=== PATIENT | male | born 1940 | race Caucasian/White ===

== ENCOUNTER → 2016-07-05 | Outpatient (CLI) | payer MEDICARE ==
[~2016-07-05] MED LIST: ACET65TA; ALLO100T PO; ASPI81TA83; ATEN50TA2; ATEN50TA2 PO; CARA1TAB2 PO; CARV6.25 PO; CHLO25TA38 PO; CIPR500T89 PO; CLOBETASOL TOP; CLOP75TA2 PO; COLCHICINE PO; CORE25TA PO; COUM7.5T PO; FLEXERIL; FURO40TA2 PO; FURO8SOL PO; GABA-279 PO; GABA300C3 PO; K-TA10TA; LASI40TA; LEVA500T PO; LISI5TAB PO; MAGN500T14 PO; METF500T PO; MI-A80CH PO; MULTIVIT; NITR0.4S SL; NITR4TASL; NITR4TASL SL; NITROGLYCERINE TOP; OMEP20TA7 PO; OMEP40CA2 PO; ONDA4TAB6; PERC5TAB6 PO; PERCOCET PO; PLAV75TA2 PO; PRAV10TA PO; PROBENECID PO; SIMV20TA2; TAMS0.4C PO; TIZA2CAP3 PO; TRIA0.1C60 EX; TYLE325T5 PO; TYLE650T25 PO; ULTR50TA PO; VALS1TAB49 PO; lasix OR
--- NOTE | 2016-07-05 11:14 | REP ---
KUB, THREE VIEWS: HISTORY: Abdominal pain. A small amount of air is present in small and large intestine. There are no air fluid levels or dilated loops of intestine. There is no pneumoperitoneum. Degenerative change is present in the lumbar spine. A laminectomy defect is present at the L5-S1 level. IMPRESSION: Nonspecific bowel gas pattern. Signed by Ramses Gonsalves MD 07/05/2016 11:59 A
[2016-07-05 13:37] LABS: BASO % 0.3 % (0.0-1.0); EOS # 0.1 K/mm3 (0.0-0.50); EOS % 1.1 % (0.0-3.0); LARGE UNSTAINED CELL # 0.1 K/mm3 (0.0-0.4); LARGE UNSTAINED CELL % 1.1 % (0.0-4.0); LYMPH # 1.3 K/mm3 (1.5-4.5); LYMPH % 17.5 % (24.0-44.0); MEAN CORPUSCULAR HEMOGLOBIN 29.4 pg (27.0-33.0); MEAN CORPUSCULAR HGB CONC 34.7 g/dl (32.0-36.5); MEAN CORPUSCULAR VOLUME 84.8 fl (80.0-96.0); MONO # 0.5 K/mm3 (0.0-0.8); MONO % 7.1 % (0.0-5.0); NEUTROPHILS # 5.3 K/mm3 (1.8-7.7); PLATELET COUNT, AUTOMATED 153 k/mm3 (150-450); RED CELL DISTRIBUTION WIDTH 13.7 % (11.5-14.5); WHITE BLOOD COUNT 7.2 K/mm3 (4.0-10.0)
[2016-07-05 13:51] LABS: ALBUMIN 3.9 GM/DL (3.2-5.2); ALBUMIN/GLOBULIN RATIO 1.22 (1.00-1.93); ALKALINE PHOSPHATASE 60 U/L (45-117); ALT/SGPT 81 U/L (12-78); AMYLASE 57 U/L (25-115); ANION GAP 10 MEQ/L (8-16); AST/SGOT 50 U/L (15-37); BILIRUBIN,TOTAL 0.6 MG/DL (0.2-1.0); BLOOD UREA NITROGEN 13 MG/DL (7-18); CALCIUM LEVEL 9.5 MG/DL (8.8-10.2); CARBON DIOXIDE LEVEL 29 MEQ/L (21-32); CHLORIDE LEVEL 93 MEQ/L (98-107); CREATININE FOR GFR 0.82 MG/DL (0.70-1.30); GLOMERULAR FILTRATION RATE > 60.0 (>42); GLUCOSE, FASTING 136 MG/DL (83-110); POTASSIUM SERUM 4.9 MEQ/L (3.5-5.1); SODIUM LEVEL 132 MEQ/L (136-145); TOTAL PROTEIN 7.1 GM/DL (6.4-8.2)
== END ==
LOC: M ADAMS 10:16
PROVIDERS: ATTEND Physician Assistant Medical
DX: R10.9 Unspecified abdominal pain (principal)

== ENCOUNTER 2016-07-06 08:34 | Emergency (ER) | payer MEDICARE ==
[~2016-07-06] VITALS: Ht 180.3 cm; Wt 104.3 kg
[~2016-07-06 08:34] MED LIST changes: -CARV6.25 PO; -CHLO25TA38 PO; -FURO40TA2 PO; -FURO8SOL PO; -GABA-279 PO; -MAGN500T14 PO; -MI-A80CH PO; -NITR4TASL; -OMEP40CA2 PO; -ONDA4TAB6; -PRAV10TA PO; -VALS1TAB49 PO
[2016-07-06] MEDS ORDERED: GABA-279 PO (09:06)
[2016-07-06] MEDS ORDERED: FURO8SOL PO (09:06)
[2016-07-06] MEDS ORDERED: MAGN500T14 PO (09:06)
[2016-07-06] MEDS ORDERED: PRAV10TA PO (09:06)
[2016-07-06] MEDS ORDERED: OMEP40CA2 PO (09:06)
[2016-07-06] MEDS ORDERED: FURO40TA2 PO (09:06)
[2016-07-06] MEDS ORDERED: METF500T PO (09:06)
[2016-07-06] MEDS ORDERED: MI-A80CH PO (09:06)
[2016-07-06] MEDS ORDERED: VALS1TAB49 PO (09:06)
[2016-07-06] MEDS ORDERED: CARV6.25 PO (09:06)
[2016-07-06] MEDS ORDERED: CLOP75TA2 PO (09:06)
[2016-07-06] MEDS ORDERED: ALLO100T PO (09:06)
[2016-07-06] MEDS ORDERED: ONDA4TAB6 (09:06)
[2016-07-06] MEDS ORDERED: NITR4TASL (09:06)
[2016-07-06 09:50] LABS: BASO % 0.2 % (0.0-1.0); EOS % 0.6 % (0.0-3.0); LARGE UNSTAINED CELL # 0.1 K/mm3 (0.0-0.4); LYMPH # 1.2 K/mm3 (1.5-4.5); LYMPH % 19.6 % (24.0-44.0); MEAN CORPUSCULAR HEMOGLOBIN 29.1 pg (27.0-33.0); MEAN CORPUSCULAR HGB CONC 35.1 g/dl (32.0-36.5); MEAN CORPUSCULAR VOLUME 82.9 fl (80.0-96.0); MONO # 0.4 K/mm3 (0.0-0.8); MONO % 7.2 % (0.0-5.0); NEUTROPHILS # 4.2 K/mm3 (1.8-7.7); NEUTROPHILS % 70.4 % (36.0-66.0); PLATELET COUNT, AUTOMATED 161 k/mm3 (150-450); RED CELL DISTRIBUTION WIDTH 13.3 % (11.5-14.5)
[2016-07-06 10:19] LABS: ALBUMIN 3.7 GM/DL (3.2-5.2); ALBUMIN/GLOBULIN RATIO 0.93 (1.00-1.93); ALKALINE PHOSPHATASE 63 U/L (45-117); ALT/SGPT 96 U/L (12-78); ANION GAP 9 MEQ/L (8-16); AST/SGOT 66 U/L (15-37); BILIRUBIN,DIRECT 0.1 MG/DL (0.0-0.2); BILIRUBIN,TOTAL 0.6 MG/DL (0.2-1.0); BLOOD UREA NITROGEN 12 MG/DL (7-18); CALCIUM LEVEL 9.4 MG/DL (8.8-10.2); CARBON DIOXIDE LEVEL 26 MEQ/L (21-32); CHLORIDE LEVEL 96 MEQ/L (98-107); CREATININE FOR GFR 0.82 MG/DL (0.70-1.30); GLOMERULAR FILTRATION RATE > 60.0 (>42); GLUCOSE, FASTING 139 MG/DL (83-110); POTASSIUM SERUM 4.3 MEQ/L (3.5-5.1); SODIUM LEVEL 131 MEQ/L (136-145); TOTAL PROTEIN 7.7 GM/DL (6.4-8.2)
[2016-07-06] MEDS ORDERED: ISOVUE-370 76% 100ML VIAL (Q9967) As Ordered ONE (10:36)
[2016-07-06] MEDS ORDERED: METOCLOPRAMIDE INJ 10MG/2ML VIAL (J2765) IV ONE ×2 (10:45→11:15)
--- NOTE | 2016-07-06 12:30 | REP ---
REASON FOR EXAM: Abdominal pain. COMPARISON: 07/24/2011 from [facility] which showed no abnormality. Contrast utilized 100 mL of Isovue 370. The lung bases are clear and unchanged. The liver, gallbladder, spleen, pancreas, adrenal glands, and kidneys are again seen to be within normal limits and essentially unchanged. The abdominal aorta and para-aortic regions are essentially unchanged and again seen to be within normal limits. There is respiratory motion artifact seen throughout the abdominal images decreasing the sensitivity of the exam. The bowel loops and their mesenteries are essentially unchanged aside from the detailed limiting artifact. There is no evidence of intestinal obstruction. There is no evidence of free intra-abdominal fluid or air. There is no evidence of an intra-abdominal mass or adenopathy. CT PELVIS: There is no free pelvic fluid or air. There is no pelvic mass or adenopathy. The pelvic bowel loops and their mesenteries are within normal limits. 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 Bone window technique throughout the exam shows chronic osseous changes, status quo. IMPRESSION: No significant change compared to the prior exam with limitations as described above. There is no evidence of acute intra-abdominal or intrapelvic disease. Signed by Marcelino Hall DO 07/06/2016 01:09 P
[2016-07-06] MEDS ORDERED: chlorproMAZINE INJ 50MG/2ML AMP (J3230) IM STA (13:36)
[2016-07-06 14:53] VITALS: BP 115/74
[2016-07-06] MEDS ORDERED: CHLO25TA38 PO (14:54)
--- NOTE | 2016-07-07 19:45 | ECGEPIP ---
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
== END 2016-07-06 15:12 | disposition home or self-care (01) ==
LOC: M ED 09:50
DX: R06.6 Hiccough (principal); E11.9 Type 2 diabetes mellitus without complications; I10 Essential (primary) hypertension; I50.9 Heart failure, unspecified; K43.9 Ventral hernia without obstruction or gangrene; Z85.819 Personal history of malignant neoplasm of unspecified site of lip, oral cavity, and pharynx; Z95.5 Presence of coronary angioplasty implant and graft
CPT/HCPCS: 36415; 74177; 80048; 80076; 83605; 83690; 85025; 93005; 93041; 96372; 96374; 96376; 99284; J2765; J3230; Q9967

== ENCOUNTER → 2016-10-10 | Outpatient (CLI) | payer MEDICARE ==
[~2016-10-10] MED LIST changes: +CARV6.25 PO; +CHLO25TA38 PO; +DOXY-278 PO; +E-Z-PAQUE 96% w/w SUSP 176GM BTL As Ordered ONE; +FURO40TA2 PO; +FURO8SOL PO; +GABA-279 PO; +GABA-282 PO; -GABA300C3 PO; +MAGN500T14 PO; +MI-A80CH PO; +NITR4TASL; +NYST50SS SS; +OMEP40CA2 PO; +ONDA4TAB6; +PRAV10TA PO; +REGL5TAB2 PO; +SUCR1TA PO; +VALS1TAB49 PO; +VARIBAR NECTAR 40% w/v 240ML SUSP BTL As Ordered ONE; +VARIBAR PUDDING 40% w/v 230ML TUBE As Ordered ONE
--- NOTE | 2016-10-10 12:32 | REP ---
COOKIE SWALLOW: The procedure was performed under the direct supervision of Dr. Reyes. The procedure was performed with Neida Perez from speech pathology present. 5 mL aliquots of nectar pudding solid and thin consistency barium was administered. There is no evidence of penetration or aspiration. A detailed report of this examination will be provided by speech pathology. Reviewed by FLORENTINO Agustin 10/10/2016 03:16 PEdited and Signed by Guillermo Reyes MD 10/10/2016 04:32 P
== END ==
LOC: M ST 09:36
PROVIDERS: ATTEND Physician Assistant Medical
DX: R13.10 Dysphagia, unspecified (principal)
CPT/HCPCS: 74230; 92611; G8996; G8997; G8998

== ENCOUNTER 2016-10-18 07:34 | Outpatient (RCR) | payer MEDICARE ==
[~2016-10-18 07:34] MED LIST changes: +CIPR-249 PO; -CIPR500T89 PO; -E-Z-PAQUE 96% w/w SUSP 176GM BTL As Ordered ONE; +LEVA1TAB2 PO; -LEVA500T PO; +METF500T13 PO; +PERC5TAB12 PO; -PERC5TAB6 PO; -PRAV10TA PO; +PRAV10TA4 PO; -VARIBAR NECTAR 40% w/v 240ML SUSP BTL As Ordered ONE; -VARIBAR PUDDING 40% w/v 230ML TUBE As Ordered ONE
== END 2016-10-25 | disposition home or self-care (01) ==
LOC: M ST 07:34
PROVIDERS: ATTEND Physician Assistant Medical
DX: Z51.89 Encounter for other specified aftercare (principal); R49.8 Other voice and resonance disorders; R13.10 Dysphagia, unspecified
CPT/HCPCS: 92523; 92524; 92526; G8996; G8997; G8998

== ENCOUNTER → 2017-01-29 | Outpatient (CLI) | payer MEDICARE | LOC: M SMT 10:36 | PROVIDERS: ATTEND Urology | DX: Z12.5 Encounter for screening for malignant neoplasm of prostate (principal) | CPT/HCPCS: 36415; 51798; G0103; G0463 ==

== ENCOUNTER → 2017-07-04 | Outpatient (REF) | payer MEDICARE ==
[2017-07-04 16:55] LABS: TOTAL PROTEIN 7.5 GM/DL (6.4-8.2)
[2017-07-04 17:11] LABS: PTH INTACT 63.4 PG/ML (18.5-88.0)
[2017-07-07 11:56] LABS: ALBUMIN 4.48 GM/DL (3.29-5.55); ALBUMIN % 59.7 % (55.8-66.1); ALPHA-1-GLOBULIN % 4.2 % (2.9-4.9); ALPHA-1-GLOBULINS 0.32 GM/DL (0.17-0.41); ALPHA-2-GLOBULINS 1.02 GM/DL (0.42-0.99); ALPHA-2-GLOBULINS % 13.6 % (7.1-11.8); BETA-1-GLOBULINS 0.46 GM/DL (0.28-0.60); BETA-1-GLOBULINS % 6.1 % (4.7-7.2); BETA-2-GLOBULINS 0.39 GM/DL (0.19-0.55); BETA-2-GLOBULINS % 5.2 % (3.2-6.5); GAMMA GLOBULIN % 11.2 % (11.1-18.8); GAMMA GLOBULINS 0.84 GM/DL (0.65-1.58)
== END ==
LOC: M LAB REF 16:28
DX: E83.52 Hypercalcemia (principal)
CPT/HCPCS: 84165

== ENCOUNTER → 2019-05-20 | Outpatient (REF) | payer MEDICARE ==
[~2019-05-20] MED LIST changes: -DOXY-278 PO; +DOXY-350 PO; +GABA-1171 PO; -GABA-279 PO; -GABA-282 PO; +GABA-843 PO; -OMEP40CA2 PO; +OMEP40CA97 PO; +TIZA2CAP PO; -TIZA2CAP3 PO; -VALS1TAB49 PO; +VALS40TA9 PO
== END ==
LOC: M LAB REF 10:13
PROVIDERS: ATTEND Dermatology
DX: D48.9 Neoplasm of uncertain behavior, unspecified (principal)

== ENCOUNTER → 2019-06-03 | Outpatient (REF) | payer MEDICARE | LOC: M LAB REF 19:45 | PROVIDERS: ATTEND Dermatology | DX: L57.0 Actinic keratosis (principal) ==

== ENCOUNTER → 2020-01-31 | Outpatient (REF) | payer MEDICARE ==
[~2020-01-31] MED LIST changes: -COUM7.5T PO; +COUM7.5T6 PO
[2020-01-31 17:45] LABS: APPEARANCE, URINE CLEAR (CLEAR); BACTERIA, URINE AUTO NEGATIVE (NEGATIVE); BILIRUBIN, URINE AUTO NEGATIVE (NEGATIVE); BLOOD, URINE BLOOD NEGATIVE (NEGATIVE); COLOR, URINE YELLOW (YELLOW); GLUCOSE, URINE (UA) AUTO NEGATIVE (NEGATIVE); KETONE, URINE AUTO NEGATIVE (NEGATIVE); LEUKOCYTE ESTERASE, URINE AUTO NEGATIVE (NEGATIVE); NITRITE, URINE AUTO NEGATIVE (NEGATIVE); PROTEIN, URINE AUTO NEGATIVE (NEGATIVE); RBC, URINE AUTO 0 /HPF (0-3); SPECIFIC GRAVITY URINE AUTO 1.015 (1.002-1.035); SQUAMOUS EPITHELIAL CELL UR AU 0 /HPF (0-6); UROBILINOGEN, URINE AUTO 0.2 mg/dL (0.0-2.0); WBC, URINE AUTO 1 /HPF (0-3)
== END ==
LOC: M SMT 16:51
PROVIDERS: ATTEND Nurse Practitioner Women's Health
DX: N50.819 Testicular pain, unspecified (principal)
CPT/HCPCS: 51798; 81001; 87086; G0463

== ENCOUNTER → 2020-06-26 | Outpatient (CLI) | payer MEDICARE ==
[~2020-06-26] MED LIST changes: +GABA-282 PO; -GABA-843 PO
--- NOTE | 2020-06-26 11:11 | REP ---
INDICATION: SOB COMPARISON: 08/31/2015 TECHNIQUE: PA and lateral. FINDINGS: The mediastinum and cardiac silhouette are normal. Incidental cardiac stent noted.. The lung taylor are clear and without acute consolidation, effusion, or pneumothorax. The skeletal structures are intact and normal. IMPRESSION: No acute cardiopulmonary process. <Electronically signed by Tyron Perez > 06/26/20 1104
== END ==
LOC: M RAD 10:29
PROVIDERS: ATTEND Internal Medicine
DX: R06.02 Shortness of breath (principal); R10.10 Upper abdominal pain, unspecified; E83.52 Hypercalcemia; Z95.5 Presence of coronary angioplasty implant and graft

== ENCOUNTER → 2020-07-07 | Outpatient (REF) | payer MEDICARE | LOC: M LAB REF 19:21 | PROVIDERS: ATTEND Dermatology | DX: L82.1 Other seborrheic keratosis (principal); L81.4 Other melanin hyperpigmentation | CPT/HCPCS: 11102; 17110; 88305; G0463 ==

== ENCOUNTER → 2020-07-10 | Outpatient (CLI) | payer MEDICARE ==
[~2020-07-10] MED LIST changes: +PROHANCE 279.3MG/ML 15ML VIAL As Ordered ONE; +PROHANCE 279.3MG/ML 5ML VIAL As Ordered ONE
--- NOTE | 2020-07-11 09:46 | REPVR ---
PROCEDURE INFORMATION: Exam: MR Head Without and With Contrast; Internal Auditory Canals Exam date and time: 07/10/2020 5:47 PM Age: 80 years old Clinical indication: Other: Sensorineural hearing loss, bilateral TECHNIQUE: Imaging protocol: MR of the head without and with intravenous contrast. Exam focused on the internal auditory canals. 3D rendering (Not supervised by radiologist): MIP and/or 3D reconstructed images were created by the technologist. Contrast material: PROHANCE; Contrast volume: 19 ml; Contrast route: INTRAVENOUS (IV); COMPARISON: No relevant prior studies available. FINDINGS: Brain: There are scattered nonspecific foci of high signal abnormality in the moreno radiata and centrum semiovale. These are best seen on the flair images. These foci may represent areas of gliosis, demyelination, and/or chronic ischemic change. There are chronic brainstem ischemic changes. Ventricles: No ventriculomegaly. Mastoid air cells: Unremarkable. No effusions. Internal auditory canals: High-resolution imaging through the internal auditory canals (IACs) demonstrates normal appearance of the seventh and eighth cranial nerve complexes. The cerebellopontine angle cisterns are unremarkable. Bones/joints: Unremarkable. IMPRESSION: 1. There are scattered nonspecific foci of high signal abnormality in the moreno radiata and centrum semiovale. These are best seen on the flair images. These foci may represent areas of gliosis, demyelination, and/or chronic ischemic change. No acute infarct is identified. 2. High-resolution imaging through the internal auditory canals (IACs) demonstrates normal appearance of the seventh and eighth cranial nerve complexes. The cerebellopontine angle cisterns are unremarkable. 3. There are chronic brainstem ischemic changes. Electronically signed by: Dakotah Reis On 07/11/2020 09:45:41 AM
== END ==
LOC: M RAD 16:07
PROVIDERS: ATTEND Otolaryngology
DX: H90.3 Sensorineural hearing loss, bilateral (principal)
CPT/HCPCS: 70553; A9576

== ENCOUNTER → 2020-07-13 | Outpatient (CLI) | payer MEDICARE ==
[~2020-07-13] MED LIST changes: +GASTROGRAFIN SOLUTION 30ML (Q9963) As Ordered ONE; +ISOVUE-370 76% 100ML VIAL As Ordered ONE; -PROHANCE 279.3MG/ML 15ML VIAL As Ordered ONE; -PROHANCE 279.3MG/ML 5ML VIAL As Ordered ONE
--- NOTE | 2020-07-14 08:59 | REP ---
INDICATION: UPPER ABDOMINAL PAIN, UNSPECIFIED. COMPARISON: 07/06/2016 TECHNIQUE: Axial contrast-enhanced images from the lung bases to the pubic symphysis using oral and 100 cc Isovue 370 intravenous contrast material. Precontrast and delayed images of the abdomen obtained along with coronal and sagittal reformations. This CT examination was performed using the following dose reduction techniques: Automated exposure control, adjustment of mA and/or kv according to the patient's size, and the use of iterative reconstruction technique. FINDINGS: Liver demonstrates mild fatty infiltration without focal hepatic lesion. The spleen, pancreas, gallbladder, bilateral adrenal glands and left kidney are normal. There is a 9 mm in enhancing lesion along the anterior cortex of the right kidney (series 301; image 67). The enteric system including stomach, small, and large bowel appears normal. No evidence for obstruction or acute inflammatory process. Scattered diverticula noted without acute diverticulitis. Pelvis demonstrates enlarged prostate gland with heterogeneous enhancement, chronic corpora amylacea and mass effect on the base of the bladder. No ascites. No free air. No intraperitoneal or retroperitoneal adenopathy. Abdominal aorta and vasculature appear normal. Musculoskeletal structures demonstrate age-related changes without acute osseous abnormality. IMPRESSION: 1. Small subcentimeter enhancing lesion along the anterior margin of the right kidney warrants ultrasound follow-up. 2. No acute abdominopelvic pathology appreciated. 3. Chronic Prostatomegaly <Electronically signed by Tyron Perez > 07/14/20 0855
== END ==
LOC: M RAD 11:53
PROVIDERS: ATTEND Internal Medicine
DX: K76.0 Fatty (change of) liver, not elsewhere classified (principal); R10.10 Upper abdominal pain, unspecified
CPT/HCPCS: 74178; Q9963; Q9967

== ENCOUNTER → 2020-07-27 | Outpatient (REF) | payer MEDICARE ==
[~2020-07-27] MED LIST changes: -GASTROGRAFIN SOLUTION 30ML (Q9963) As Ordered ONE; -ISOVUE-370 76% 100ML VIAL As Ordered ONE
[2020-07-27 11:34] LABS: CK-MB VALUE MASS 1.3 NG/ML (<3.6); CPK CREATINE PHOSPHOKINASE 47 U/L (39-308); MB/CK RELATIVE INDEX 2.77 (< OR =4); TROPONIN I < 0.02 NG/ML (< 0.10)
== END ==
LOC: M LAB REF 10:00
PROVIDERS: ATTEND Internal Medicine
DX: R07.9 Chest pain, unspecified (principal)

== ENCOUNTER 2020-07-29 07:42 | Emergency (ER) | payer MEDICARE ==
[~2020-07-29] VITALS: Ht 177.8 cm; Wt 100.0 kg
[2020-07-29] MEDS ORDERED: fentaNYL 100 MCG/2 ML INJECTION (J3010) IV PRN (08:00)
[2020-07-29] MEDS ORDERED: ONDANSETRON 4MG/2ML VIAL IV ONE (08:00)
--- NOTE | 2020-07-29 08:21 | REP ---
INDICATION: CHEST PAIN. COMPARISON: PA and lateral chest dated 07/05/2020 TECHNIQUE: AP portable chest with the patient upright, two views. FINDINGS: The lung taylor are clear. Cardiac size is normal. The velma, mediastinum and skeletal structures are unremarkable. IMPRESSION: Essentially negative portable chest <Electronically signed by Guillermo Moise > 07/29/20 0817
[2020-07-29 08:53] LABS: BASO % 0.7 % (0.0-1.0); EOS # 0.1 10^3/uL (0.0-0.5); EOS % 2.5 % (0.0-3.0); HEMOGLOBIN 14.4 g/dl (13.5-17.5); LYMPH # 1.9 10^3/uL (1.5-5.0); LYMPH % 33.3 % (24.0-44.0); MEAN CORPUSCULAR HGB CONC 33.5 g/dl (32.0-36.5); MEAN CORPUSCULAR VOLUME 86.7 fl (80.0-96.0); MONO # 0.5 10^3/uL (0.0-0.8); MONO % 8.7 % (2.0-8.0); NEUTROPHILS # 3.1 10^3/uL (1.5-8.5); NEUTROPHILS % 54.3 % (36.0-66.0); PLATELET COUNT, AUTOMATED 174 10^3/uL (150-450); RED BLOOD COUNT 4.96 10^6/uL (4.30-6.10); WHITE BLOOD COUNT 5.7 10^3/uL (4.0-10.0)
[2020-07-29] MEDS ORDERED: ACETAMINOPHEN 500 MG TAB PO ONE (09:10)
[2020-07-29 09:15] LABS: INR 0.98; PROTHROMBIN TIME 13.1 SECONDS (12.5-14.3)
[2020-07-29 09:16] LABS: PARTIAL THROMBOPLASTIN TIME 28.5 SECONDS (24.2-38.5)
[2020-07-29] MEDS ORDERED: ISOVUE-370 76% 100ML VIAL As Ordered ONE (09:22)
[2020-07-29 09:51] LABS: ALBUMIN 3.9 GM/DL (3.2-5.2); BILIRUBIN,DIRECT 0.1 MG/DL (0.0-0.2); BILIRUBIN,TOTAL 0.4 MG/DL (0.2-1.0); FREE T4 0.9 NG/DL (0.76-1.46); THYROID STIMULATING HORMONE 0.948 uIU/ML (0.358-3.740); TOTAL PROTEIN 7.2 GM/DL (6.4-8.2)
--- NOTE | 2020-07-29 10:02 | REP ---
INDICATION: chest pain ro pe. COMPARISON: Chest CT without IV contrast dated 02/24/2014. TECHNIQUE: Chest CT with IV contrast, CT angiography. FINDINGS: There are no emboli in the pulmonary trunk or central pulmonary arteries. There are no emboli in the pulmonary artery lobar or segment branches. There are no infiltrates or pleural effusions. There is a 10 mm lung nodule posteriorly in the superior segment of the right lower lobe on image 39. This was not present on the comparison study. No other lung masses or nodules are identified. There is no mediastinal or hilar lymph node enlargement. There is no axillary lymphadenopathy. The thoracic aorta is unremarkable except for occasional calcified atheroma. Cardiac size is normal. There is calcified atheroma in the coronary arteries. There is no pericardial effusion. Upper abdomen: The visualized areas of the liver, pancreas and spleen are unremarkable. The adrenals are unremarkable. The gallbladder is not included. There is a small hiatal hernia, unchanged. IMPRESSION: There are no pulmonary emboli. There is a new 10 mm lung nodule in the superior segment of the right lower lobe on image 39.. This is a category 4A lung nodule and follow-up CT in 3 months is recommended. Consider PET scan. There are no infiltrates or pleural effusions. Small hiatal hernia, unchanged. <Electronically signed by Guillermo Moise > 07/29/20 0913
[2020-07-29 11:46] VITALS: BP 160/95
[2020-07-29] MEDS ORDERED: PERCOCET 5MG/325MG TAB PO ONE (12:25)
[2020-07-29] MEDS ORDERED: PERC5TAB12 PO (12:45)
--- NOTE | 2020-07-29 19:07 | ECGEPIP ---
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
--- NOTE | 2020-07-29 19:12 | ECGEPIP ---
[facility] - ED Test Date: 2020-07-29 Pat Name: MARY ANTOINE Department: Room: - Gender: Male Parquetry Layer: FLAKITA : 1940 Requested By: Daisy Valente Order Number: [id number] Reading MD: Daisy Valente Measurements Intervals [place] Rate: 63 P: 0 [place]: 192 QRS: -1 QRSD: 160 T: -13 QT: 408 QTc: 417 Interpretive Statements Normal sinus rhythm Right bundle branch block Inferior infarct , age undetermined cw 07/29/[address] T wave changes Electronically Signed on 07-29-2020 19:12:12 EDT by Daisy Valente
--- NOTE | 2020-07-30 06:52 | ED PDOC ---
Post-Departure Follow-Up cta chest faxed to dr ramon for fu Daisy Ward MD Jul 30, 2020 06:52
== END 2020-07-29 13:05 | disposition home or self-care (01) ==
LOC: M ED 07:42
DX: R07.89 Other chest pain (principal); I45.10 Unspecified right bundle-branch block; R91.1 Solitary pulmonary nodule; K44.9 Diaphragmatic hernia without obstruction or gangrene; I25.10 Atherosclerotic heart disease of native coronary artery without angina pectoris; I25.2 Old myocardial infarction; R06.02 Shortness of breath; E11.9 Type 2 diabetes mellitus without complications; I10 Essential (primary) hypertension; Z95.5 Presence of coronary angioplasty implant and graft; Z87.891 Personal history of nicotine dependence; Z79.84 Long term (current) use of oral hypoglycemic drugs; Z79.899 Other long term (current) drug therapy; Z88.0 Allergy status to penicillin; Z88.2 Allergy status to sulfonamides
CPT/HCPCS: 71045; 71275; 80047; 80076; 83690; 83880; 84439; 84443; 84484; 85025; 85610; 85730; 93005; 93041; 94760; 96374; 96375; 99285; J2405; J3010; Q9967

== ENCOUNTER → 2020-09-28 | Outpatient (REF) | payer MEDICARE ==
[~2020-09-28] MED LIST changes: +D3 S20002 PO; +EZET10TA21; +MAGN500T12 PO; +PRIL20TA2 PO; +TAMS1CAP17
== END ==
LOC: M LAB REF 17:26
PROVIDERS: ATTEND Internal Medicine
DX: E83.52 Hypercalcemia (principal)

== ENCOUNTER → 2020-09-29 | Outpatient (CLI) | payer MEDICARE | LOC: M LABSMTC 09:58 | PROVIDERS: ATTEND Anesthesiology | DX: Z01.812 Encounter for preprocedural laboratory examination (principal); Z20.822 Contact with and (suspected) exposure to COVID-19 ==

== ENCOUNTER 2020-10-04 10:52 | Day surgery (SDC) | payer MEDICARE ==
[~2020-10-04] VITALS: Ht 177.8 cm; Wt 99.3 kg
[~2020-10-04 10:52] MED LIST changes: +NS 1,000 ML IV ONE
[2020-10-04] MEDS ORDERED: LIDOCAINE 2% 100MG/5ML SDV (FOR ANES.) As Ordered ONE (11:41)
[2020-10-04] MEDS ORDERED: propofoL 200 MG/20 ML VIAL As Ordered ONE (11:42)
--- NOTE | 2020-10-04 13:18 | ROOR ---
Patient Name: Emery Leyva Procedure Date: 10/04/2020 12:59 PM Date of : 1940 Age: 80 Room: [facility] Gender: Male Note Status: Finalized Procedure: Upper GI endoscopy Indications: Heartburn, Unexplained chest pain Providers: Micheal Stiles MD Referring MD: Mayela Bruner DO Requesting Provider: Medicines: Monitored Anesthesia Care Complications: No immediate complications. Procedure: Pre-Anesthesia Assessment: - The heart rate, respiratory rate, oxygen saturations, blood pressure, adequacy of pulmonary ventilation, and response to care were monitored throughout the procedure. The Endoscope was introduced through the mouth, and advanced to the second part of duodenum. The upper GI endoscopy was accomplished without difficulty. The patient tolerated the procedure well. Findings: The Z-line was variable and was found 40 cm from the incisors. A medium-sized hiatal hernia was present. No other significant abnormalities were identified in a careful examination of the stomach. The exam of the duodenum was otherwise normal. Impression: - Z-line variable, 40 cm from the incisors. - Medium-sized hiatal hernia. - No specimens collected. - The examination was otherwise normal. Recommendation: - Patient has a contact number available for emergencies. The signs and symptoms of potential delayed complications were discussed with the patient. Return to normal activities tomorrow. Written discharge instructions were provided to the patient. - High fiber diet. - Discharge patient to home. Procedure Code(s): --- Professional --- 02693, Esophagogastroduodenoscopy, flexible, transoral; diagnostic, including collection of specimen(s) by brushing or washing, when performed (separate procedure) Diagnosis Code(s): --- Professional --- K22.8, Other specified diseases of esophagus K44.9, Diaphragmatic hernia without obstruction or gangrene R12, Heartburn R07.9, Chest pain, unspecified CPT copyright 2019 [employer]. All rights reserved. The codes documented in this report are preliminary and upon outreach manager review may be revised to meet current compliance requirements. Micheal Stiles MD Micheal Stiles MD 10/04/2020 1:18:07 PM Electronically signed by Micheal Stiles MD Number of Addenda: 0 Note Initiated On: 10/04/2020 12:59 PM Estimated Blood Loss: Estimated blood loss: none.
[2020-10-04 13:45] VITALS: BP 131/66
== END 2020-10-04 14:00 | disposition home or self-care (01) ==
LOC: M OPP 10:52
PROVIDERS: ATTEND Internal Medicine Gastroenterology
DX: K22.8 Other specified diseases of esophagus (principal); K44.9 Diaphragmatic hernia without obstruction or gangrene; R12 Heartburn; R07.9 Chest pain, unspecified; Z79.84 Long term (current) use of oral hypoglycemic drugs; Z79.899 Other long term (current) drug therapy; Z88.0 Allergy status to penicillin; Z88.1 Allergy status to other antibiotic agents; Z87.891 Personal history of nicotine dependence

== ENCOUNTER → 2020-12-06 | Outpatient (REF) | payer MEDICARE ==
[~2020-12-06] MED LIST changes: -NS 1,000 ML IV ONE; +OMEP40CA4 PO; -OMEP40CA97 PO
[2020-12-06 13:16] LABS: BASO # 0.1 10^3/uL (0.0-0.2); BASO % 0.9 % (0.0-1.0); EOS # 0.1 10^3/uL (0.0-0.5); EOS % 2.2 % (0.0-3.0); LYMPH # 2.1 10^3/uL (1.5-5.0); MEAN CORPUSCULAR HGB CONC 33.3 g/dl (32.0-36.5); MONO # 0.6 10^3/uL (0.0-0.8); MONO % 9.4 % (2.0-8.0); PLATELET COUNT, AUTOMATED 162 10^3/uL (150-450); RED BLOOD COUNT 4.83 10^6/uL (4.30-6.10); WHITE BLOOD COUNT 5.9 10^3/uL (4.0-10.0)
[2020-12-06 13:50] LABS: ALBUMIN 4.3 GM/DL (3.2-5.2); ALT/SGPT 72 U/L (12-78); BILIRUBIN,TOTAL 0.5 MG/DL (0.2-1.0); BLOOD UREA NITROGEN 12 MG/DL (7-18); CALCIUM LEVEL 11.2 MG/DL (8.8-10.2); CARBON DIOXIDE LEVEL 29 MEQ/L (21-32); CHLORIDE LEVEL 106 MEQ/L (98-107); CHOLESTEROL LEVEL 188 MG/DL (<200); CHOLESTEROL RISK RATIO 4.585 (<5); CREATININE FOR GFR 0.75 MG/DL (0.70-1.30); GLOMERULAR FILTRATION RATE > 60.0 (>35); GLUCOSE, FASTING 125 MG/DL (70-100); HDL CHOLESTEROL 41 MG/DL (>40); LDL CHOLESTEROL 107 MG/DL (<100); NON-HDL-C 147 MG/DL; NT-PRO BNP 19 PG/ML (<450); SODIUM LEVEL 139 MEQ/L (136-145); TOTAL PROTEIN 7.1 GM/DL (6.4-8.2); TRIGLYCERIDES LEVEL 201 MG/DL (<150)
[2020-12-06 16:57] LABS: HEMOGLOBIN A1c 6.7 %
== END ==
LOC: M SFHCADAM 12:26
PROVIDERS: ATTEND Family Medicine
DX: R06.00 Dyspnea, unspecified (principal); E11.8 Type 2 diabetes mellitus with unspecified complications

== ENCOUNTER → 2020-12-19 | Outpatient (REF) | payer MEDICARE | LOC: M LAB REF 19:13 | PROVIDERS: ATTEND Physician Assistant | DX: C44.311 Basal cell carcinoma of skin of nose (principal) ==

== ENCOUNTER → 2021-01-05 | Outpatient (REF) | payer MEDICARE | LOC: M SFHCADAM 09:50 | PROVIDERS: ATTEND Nurse Practitioner Women's Health | DX: Z12.5 Encounter for screening for malignant neoplasm of prostate (principal) ==

== ENCOUNTER → 2021-02-01 | Outpatient (CLI) | payer MEDICARE ==
--- NOTE | 2021-02-01 08:43 | PFTRPT ---
Site: [facility], [address] [place] [address], [id number] ID: [id number] Name: MARY ANTOINE Visit Date: 02/01/2021 Second ID: [id number] Referring Doctor: JERRELL DICKINSON Reviewing Doctor: Mauricio Kaur MD Fiscal Assistant: Rich SALDANA RRT Age: 80 : 1940 Sex: Male Race: Height: 71.00 Inches Weight: 220.00 Lbs BSA: 2.20 Order IDs: [id number] Requested Test(s): <RESP-PFT.PFT B/A> Diagnosis: R05 test meet the ATS standards for acceptability and repeatability. Pt was given four puffs of albuterol for post bronchodilator. Review Status: Not Reviewed Pre-Bronch Post-Bronch Pred Actual %Pred Actual %Chng SPIROMETRY FVC (L) 4.17 3.06 73 3.15 3 FEV1 (L) 2.96 2.44 82 2.60 6 FEV1/FVC (%) 71 80 112 82 3 FEF 25% (L/sec) 7.21 5.88 81 7.20 22 FEF 50% (L/sec) 3.95 3.62 91 3.78 4 FEF 75% (L/sec) 1.02 0.88 86 1.11 25 FEF 25-75% (L/sec) 2.03 2.38 117 3.00 26 FEF Max (L/sec) 7.37 6.41 87 7.22 12 FIVC (L) 2.41 3.40 41 FIF 50% (L/sec) 4.18 2.98 71 4.72 58 FIF Max (L/sec) 3.05 5.03 65 MVV (L/min) 118 76 64 Expiratory Time (sec) 6.57 6.32 -3 Back Extrap Vol (L) 0.15 0.15 1 Time To FEFmax (sec) 0.094 0.096 1 LUNG VOLUMES SVC (L) 4.53 3.26 71 IC (L) 3.31 2.27 68 ERV (L) 1.22 0.99 81 TGV (L) 3.95 4.92 124 RV (Pleth) (L) 2.73 3.93 143 TLC (Pleth) (L) 7.26 7.19 99 RV/TLC (Pleth) (%) 39 55 140 DIFFUSION DLCOunc (ml/min/mmHg) 24.10 22.52 93 DLCOcor (ml/min/mmHg) 24.10 23.58 97 DL/VA (ml/min/mmHg/L) 3.32 4.08 122 VA (L) 7.26 5.78 79 BHT (sec) 10.21 IVC (L) 3.26 TLC (SB) (L) 5.93 AIRWAYS RESISTANCE Raw (cmH2O/L/s) 1.45 0.51 35 Gaw (L/s/cmH2O) 1.03 1.99 193 sRaw (cmH2O*s) 4.76 2.33 49 sGaw (1/cmH2O*s) 0.20 0.44 217 BLOOD GASES Hgb (gm/dL) 13.1
--- NOTE | 2021-02-01 10:03 | REP ---
INDICATION: SOLITARY PULMONARY NODULE- BREATHING TEST 1ST COMPARISON: Multiple the latest 07/29/2020 a contrast-enhanced CT angio chest TECHNIQUE: Standard helical technique without intravenous contrast FINDINGS: There are 2 mildly enlarged right paratracheal lymph nodes 1 measures 1.3 cm in short axis dimension in the other measures 1.1 cm. There is no gross hilar adenopathy. There are no pleural or pericardial effusions. There is no change in the imaged upper abdomen or imaged osseous structures. Evaluation of the lung taylor shows no significant change in appearance of the 1 cm size nodule in the superior segment of the right lower lobe. There are no new abnormal nodules, masses, or opacities. IMPRESSION: 1. There is mediastinal adenopathy as described above, however, when these nodes are compared to the CT of the chest obtained 02/24/2014 only 1 of the nodes has increased in size in both of the lymph nodes are unchanged compared to the 07/29/2020 CT. This finding needs to be correlated clinically with appropriate follow-up. 2. There is a stable 1 cm size nodule in superior segment the right lower lobe. According to the revised Fleischner society criteria this 4A nodule can now be categorized as a lung rads category 2 nodule and for which a 1 year follow-up is recommended. <Electronically signed by Marcelino Hall > 02/01/21 7161
== END ==
LOC: M RAD 08:08
PROVIDERS: ATTEND Nurse Practitioner Family
DX: R91.1 Solitary pulmonary nodule (principal); R05.9 Cough, unspecified; R59.0 Localized enlarged lymph nodes

== ENCOUNTER → 2021-03-15 | Outpatient (REF) | payer MEDICARE ==
[2021-03-15 13:21] LABS: HEMOGLOBIN A1c 6.5 %
[2021-03-15 13:26] LABS: ALBUMIN 4.2 GM/DL (3.2-5.2); ALT/SGPT 72 U/L (12-78); BILIRUBIN,TOTAL 0.5 MG/DL (0.2-1.0); BLOOD UREA NITROGEN 11 MG/DL (7-18); CALCIUM LEVEL 10.9 MG/DL (8.8-10.2); CARBON DIOXIDE LEVEL 28 MEQ/L (21-32); CHLORIDE LEVEL 103 MEQ/L (98-107); CREATININE FOR GFR 0.78 MG/DL (0.70-1.30); GLOMERULAR FILTRATION RATE > 60.0 (>35); GLUCOSE, FASTING 171 MG/DL (70-100); POTASSIUM SERUM 4.5 MEQ/L (3.5-5.1); SODIUM LEVEL 137 MEQ/L (136-145); TOTAL PROTEIN 7.3 GM/DL (6.4-8.2)
== END ==
LOC: M SFHCADAM 10:22
PROVIDERS: ATTEND Family Medicine
DX: E11.8 Type 2 diabetes mellitus with unspecified complications (principal)
CPT/HCPCS: 80053; 83036; G0463

== ENCOUNTER → 2021-06-13 | Outpatient (REF) | payer MEDICARE ==
[2021-06-13 13:15] LABS: ALBUMIN 4.3 GM/DL (3.2-5.2); ALT/SGPT 56 U/L (12-78); BILIRUBIN,TOTAL 0.6 MG/DL (0.2-1.0); BLOOD UREA NITROGEN 14 MG/DL (7-18); CALCIUM LEVEL 11.5 MG/DL (8.8-10.2); CARBON DIOXIDE LEVEL 26 MEQ/L (21-32); CHLORIDE LEVEL 103 MEQ/L (98-107); CREATININE FOR GFR 0.77 MG/DL (0.70-1.30); GLOMERULAR FILTRATION RATE > 60.0 (>35); GLUCOSE, FASTING 124 MG/DL (70-100); POTASSIUM SERUM 4.7 MEQ/L (3.5-5.1); SODIUM LEVEL 138 MEQ/L (136-145); TOTAL PROTEIN 7.3 GM/DL (6.4-8.2)
[2021-06-13 14:18] LABS: HEMOGLOBIN A1c 6.1 %
== END ==
LOC: M SFHCADAM 10:35
PROVIDERS: ATTEND Family Medicine
DX: E11.8 Type 2 diabetes mellitus with unspecified complications (principal)

== ENCOUNTER → 2021-07-13 | Outpatient (REF) | payer MEDICARE | LOC: M SFHCDERM 17:32 | PROVIDERS: ATTEND Nurse Practitioner Family | DX: L82.1 Other seborrheic keratosis (principal) ==

== ENCOUNTER → 2021-08-02 | Outpatient (CLI) | payer MEDICARE | LOC: M RAD 07:04 | PROVIDERS: ATTEND Internal Medicine Pulmonary Disease | DX: R91.1 Solitary pulmonary nodule (principal) ==

== ENCOUNTER → 2021-08-02 | Outpatient (REF) | payer MEDICARE ==
[2021-08-02 16:50] LABS: C REACTIVE PROTEIN QUANTITATIV < 0.30 MG/DL (0.00-0.30); URIC ACID 4.7 MG/DL (3.5-7.2)
== END ==
LOC: M SFHCADAM 14:15
PROVIDERS: ATTEND Family Medicine
DX: M79.672 Pain in left foot (principal)

== ENCOUNTER → 2021-08-22 | Outpatient (CLI) | payer MEDICARE | LOC: M ADAMS 11:03 | PROVIDERS: ATTEND Family Medicine | DX: R07.9 Chest pain, unspecified (principal); R60.9 Edema, unspecified; R06.00 Dyspnea, unspecified ==

== ENCOUNTER → 2021-08-22 | Outpatient (REF) | payer MEDICARE ==
[2021-08-22 13:28] LABS: BASO % 0.6 % (0.0-1.0); EOS # 0.1 10^3/uL (0.0-0.5); HEMATOCRIT 42.6 % (42.0-52.0); HEMOGLOBIN 14.6 g/dl (13.5-17.5); LYMPH # 2.3 10^3/uL (1.5-5.0); LYMPH % 35.4 % (24.0-44.0); MEAN CORPUSCULAR HEMOGLOBIN 29.8 pg (27.0-33.0); MEAN CORPUSCULAR HGB CONC 34.3 g/dl (32.0-36.5); MEAN CORPUSCULAR VOLUME 86.9 fl (80.0-96.0); MONO # 0.6 10^3/uL (0.0-0.8); MONO % 8.5 % (2.0-8.0); NEUTROPHILS # 3.5 10^3/uL (1.5-8.5); PLATELET COUNT, AUTOMATED 194 10^3/uL (150-450); WHITE BLOOD COUNT 6.6 10^3/uL (4.0-10.0)
[2021-08-22 13:54] LABS: ALT/SGPT 37 U/L (12-78); BILIRUBIN,TOTAL 0.5 MG/DL (0.2-1.0); BLOOD UREA NITROGEN 17 MG/DL (7-18); CALCIUM LEVEL 11.6 MG/DL (8.8-10.2); CARBON DIOXIDE LEVEL 29 MEQ/L (21-32); CHLORIDE LEVEL 104 MEQ/L (98-107); CREATININE FOR GFR 0.76 MG/DL (0.70-1.30); GLOMERULAR FILTRATION RATE > 60.0 (>35); GLUCOSE, FASTING 116 MG/DL (70-100); NT-PRO BNP 21 PG/ML (<450); POTASSIUM SERUM 4.6 MEQ/L (3.5-5.1); SODIUM LEVEL 139 MEQ/L (136-145); TOTAL PROTEIN 6.9 GM/DL (6.4-8.2)
== END ==
LOC: M SFHCADAM 10:26
PROVIDERS: ATTEND Family Medicine
DX: R60.9 Edema, unspecified (principal); R06.00 Dyspnea, unspecified

== ENCOUNTER → 2021-09-10 | Outpatient (REF) | payer MEDICARE ==
[2021-09-10 14:26] LABS: ALBUMIN 3.9 GM/DL (3.2-5.2); ALT/SGPT 27 U/L (12-78); BILIRUBIN,TOTAL 0.4 MG/DL (0.2-1.0); BLOOD UREA NITROGEN 10 MG/DL (7-18); CALCIUM LEVEL 11.3 MG/DL (8.8-10.2); CARBON DIOXIDE LEVEL 27 MEQ/L (21-32); CHLORIDE LEVEL 106 MEQ/L (98-107); CREATININE FOR GFR 0.79 MG/DL (0.70-1.30); GLOMERULAR FILTRATION RATE > 60.0 (>35); GLUCOSE, FASTING 119 MG/DL (70-100); POTASSIUM SERUM 4.3 MEQ/L (3.5-5.1); SODIUM LEVEL 140 MEQ/L (136-145); TOTAL PROTEIN 6.8 GM/DL (6.4-8.2)
[2021-09-10 15:48] LABS: HEMOGLOBIN A1c 6.3 %
== END ==
LOC: M SFHCADAM 07:53
PROVIDERS: ATTEND Family Medicine
DX: E11.8 Type 2 diabetes mellitus with unspecified complications (principal)

== ENCOUNTER → 2021-12-13 | Outpatient (REF) | payer MEDICARE ==
[~2021-12-13] MED LIST changes: -CHLO25TA38 PO; +CHLO25TA88 PO
[2021-12-13 13:31] LABS: MAGNESIUM LEVEL 1.8 MG/DL (1.8-2.4)
[2021-12-13 13:37] LABS: ALBUMIN 4.2 GM/DL (3.2-5.2); ALT/SGPT 22 U/L (12-78); BILIRUBIN,TOTAL 0.6 MG/DL (0.2-1.0); BLOOD UREA NITROGEN 14 MG/DL (7-18); CALCIUM LEVEL 11.1 MG/DL (8.8-10.2); CARBON DIOXIDE LEVEL 27 MEQ/L (21-32); CHLORIDE LEVEL 106 MEQ/L (98-107); GLOMERULAR FILTRATION RATE > 60.0 (>35); GLUCOSE, FASTING 119 MG/DL (70-100); POTASSIUM SERUM 4.4 MEQ/L (3.5-5.1); SODIUM LEVEL 137 MEQ/L (136-145); TOTAL PROTEIN 7.1 GM/DL (6.4-8.2)
[2021-12-13 14:08] LABS: TOTAL 25(OH) VITAMIN D 34.7 NG/ML (30.0-100.0)
[2021-12-13 14:29] LABS: HEMOGLOBIN A1c 6.1 %
== END ==
LOC: M SFHCADAM 08:43
PROVIDERS: ATTEND Family Medicine
DX: E11.8 Type 2 diabetes mellitus with unspecified complications (principal); E83.42 Hypomagnesemia; Z13.21 Encounter for screening for nutritional disorder

== ENCOUNTER → 2022-02-15 | Outpatient (REF) | payer MEDICARE | LOC: M LABDRWAD 12:30 | PROVIDERS: ATTEND Internal Medicine Cardiovascular Disease | DX: E78.00 Pure hypercholesterolemia, unspecified (principal) ==

== ENCOUNTER → 2022-05-17 | Outpatient (CLI) | payer MEDICARE ==
[~2022-05-17] MED LIST changes: -DOXY-350 PO; +DOXY-444 PO; +NYST-38 SS; -NYST50SS SS
== END ==
LOC: M ADAMS 15:23
PROVIDERS: ATTEND Family Medicine
DX: M79.672 Pain in left foot (principal); M77.32 Calcaneal spur, left foot

== ENCOUNTER → 2022-07-12 | Outpatient (REF) | payer MEDICARE | LOC: M SFHCADAM 07:42 | PROVIDERS: ATTEND Physician Assistant | DX: Z12.5 Encounter for screening for malignant neoplasm of prostate (principal) ==

== ENCOUNTER → 2022-08-21 | Outpatient (REF) | payer MEDICARE ==
[2022-08-21 15:50] LABS: ALBUMIN 3.9 G/DL (3.2-5.2); ALKALINE PHOSPHATASE 50 U/L (46-116); ALT/SGPT 40 U/L (7.0-40); AST/SGOT 23 U/L (<34); BILIRUBIN,TOTAL 0.4 MG/DL (0.3-1.2); BLOOD UREA NITROGEN 12 MG/DL (9-23); CALCIUM LEVEL 10.4 MG/DL (8.3-10.6); CARBON DIOXIDE LEVEL 28 MMOL/L (20-31); CHLORIDE LEVEL 104 MMOL/L (98-107); CREATININE FOR GFR 0.78 MG/DL (0.70-1.30); GLOMERULAR FILTRATION RATE > 60.0 (>35); GLUCOSE, FASTING 149 MG/DL (74-106); POTASSIUM SERUM 4.4 MMOL/L (3.5-5.1); SODIUM LEVEL 139 MMOL/L (136-145); TOTAL PROTEIN 6.8 G/DL (5.7-8.2)
[2022-08-21 16:53] LABS: HEMOGLOBIN A1c 6.4 % (4.0-6.0)
== END ==
LOC: M SFHCADAM 10:50
PROVIDERS: ATTEND Family Medicine
DX: E11.8 Type 2 diabetes mellitus with unspecified complications (principal)

== ENCOUNTER → 2022-10-07 | Outpatient (CLI) | payer MEDICARE | LOC: M ADAMS 10:43 | PROVIDERS: ATTEND Family Medicine | DX: M79.672 Pain in left foot (principal) ==

== ENCOUNTER → 2022-10-07 | Outpatient (REF) | payer MEDICARE | LOC: M SFHCADAM 10:33 | PROVIDERS: ATTEND Family Medicine | DX: R31.9 Hematuria, unspecified (principal) ==

== ENCOUNTER → 2022-10-09 | Outpatient (CLI) | payer MEDICARE | LOC: M RAD 10:00 | PROVIDERS: ATTEND Nurse Practitioner Family | DX: R91.1 Solitary pulmonary nodule (principal) ==

== ENCOUNTER → 2022-12-12 | Outpatient (REF) | payer MEDICARE | LOC: M SFHCDERM 12:29 | PROVIDERS: ATTEND Nurse Practitioner Family | DX: L82.1 Other seborrheic keratosis (principal) ==

== ENCOUNTER → 2023-01-29 | Outpatient (REF) | payer MEDICARE ==
[2023-01-29 18:47] LABS: BLOOD UREA NITROGEN 14 MG/DL (9-23); CREATININE FOR GFR 0.88 MG/DL (0.70-1.30); GLOMERULAR FILTRATION RATE > 60.0 (>35)
== END ==
LOC: M LABDRWAD 17:30
PROVIDERS: ATTEND Physician Assistant Medical
DX: K21.9 Gastro-esophageal reflux disease without esophagitis (principal); Z85.21 Personal history of malignant neoplasm of larynx; R49.0 Dysphonia

== ENCOUNTER → 2023-02-03 | Outpatient (CLI) | payer MEDICARE ==
[~2023-02-03] MED LIST changes: +ISOVUE-370 76% 100ML VIAL As Ordered ONE
== END ==
LOC: M RAD 09:37
PROVIDERS: ATTEND Otolaryngology
DX: R49.0 Dysphonia (principal)
CPT/HCPCS: 70491; Q9967

== ENCOUNTER → 2023-03-03 | Outpatient (REF) | payer MEDICARE ==
[~2023-03-03] MED LIST changes: -ISOVUE-370 76% 100ML VIAL As Ordered ONE
[2023-03-03 17:41] LABS: BASO % 0.4 % (0.0-1.0); EOS # 0.1 10^3/uL (0.0-0.5); EOS % 1.5 % (0.0-3.0); HEMATOCRIT 39.4 % (42.0-52.0); HEMOGLOBIN 13.5 g/dl (13.5-17.5); LYMPH # 2.3 10^3/uL (1.5-5.0); LYMPH % 31.4 % (24.0-44.0); MEAN CORPUSCULAR HEMOGLOBIN 30.2 pg (27.0-33.0); MEAN CORPUSCULAR HGB CONC 34.3 g/dl (32.0-36.5); MEAN CORPUSCULAR VOLUME 88.1 fl (80.0-96.0); MONO # 0.8 10^3/uL (0.0-0.8); MONO % 10.8 % (2.0-8.0); NEUTROPHILS % 55.5 % (36.0-66.0); PLATELET COUNT, AUTOMATED 181 10^3/uL (150-450); RED BLOOD COUNT 4.47 10^6/uL (4.30-6.10); WHITE BLOOD COUNT 7.3 10^3/uL (4.0-10.0)
[2023-03-03 17:57] LABS: ALBUMIN 3.9 G/DL (3.2-5.2); ALKALINE PHOSPHATASE 52 U/L (46-116); ALT/SGPT 67 U/L (7.0-40); AST/SGOT 51 U/L (<34); BILIRUBIN,TOTAL 0.4 MG/DL (0.3-1.2); BLOOD UREA NITROGEN 10 MG/DL (9-23); CALCIUM LEVEL 10.9 MG/DL (8.3-10.6); CARBON DIOXIDE LEVEL 27 MMOL/L (20-31); CHLORIDE LEVEL 100 MMOL/L (98-107); GLOMERULAR FILTRATION RATE > 60.0 (>35); GLUCOSE, FASTING 136 MG/DL (74-106); POTASSIUM SERUM 4.7 MMOL/L (3.5-5.1); SODIUM LEVEL 136 MMOL/L (136-145); TOTAL PROTEIN 7.3 G/DL (5.7-8.2)
== END ==
LOC: M SFHCADAM 13:44
PROVIDERS: ATTEND Family Medicine
DX: Z01.818 Encounter for other preprocedural examination (principal)

== ENCOUNTER → 2023-03-11 | Day surgery (SDC) | payer MEDICARE ==
[~2023-03-11] VITALS: Ht 177.8 cm; Wt 101.6 kg
[~2023-03-11] MED LIST changes: +BSS IRR 500ML/OMIDRIA 4ML IRR BAG (OR ONLY) As Ordered ONE; +CYCLOPENTOLATE 1% OPHTH SOLN 2ML BTL OD SCH; +LIDOCAINE 1% SDV 5ML VIAL As Ordered ONE; +MIDAZOLAM INJ 2MG/2ML VIAL As Ordered ONE; +MOXIFLOXACIN 0.6MG/0.4ML INTRAOCULAR SYRINGE IO ONE; +OFLOXACIN 0.3 % (OCUFLOX) OPTH SOL 5ML OD SCH; +PANT40TA29 PO; +PHENYLEPHRINE 2.5% OPHTH SOL 2ML OD SCH; +PROPARACAINE 0.5% OPHTH SOL 15ML OD ONE; +TOBRADEX OPHTH OINT 3.5 GM As Ordered ONE; +TROPICAMIDE 1% OPHTH SOLN 15ML OD SCH; +fentaNYL 100 MCG/2 ML INJECTION As Ordered ONE
[2023-03-11 08:35] VITALS: BP 153/69; TEMP 96.2; O2SAT 97
== END | disposition home or self-care (01) ==
LOC: M SDC 06:16
PROVIDERS: ATTEND Ophthalmology
DX: H25.11 Age-related nuclear cataract, right eye (principal); I10 Essential (primary) hypertension; E78.5 Hyperlipidemia, unspecified; E11.9 Type 2 diabetes mellitus without complications; K44.9 Diaphragmatic hernia without obstruction or gangrene; K21.9 Gastro-esophageal reflux disease without esophagitis; Z98.61 Coronary angioplasty status; Z87.891 Personal history of nicotine dependence; Z79.899 Other long term (current) drug therapy; Z79.84 Long term (current) use of oral hypoglycemic drugs; M10.9 Gout, unspecified
CPT/HCPCS: 66982; J1097; J2250; J3010; V2632

== ENCOUNTER 2023-04-15 06:19 | Day surgery (SDC) | payer MEDICARE ==
[~2023-04-15] VITALS: Ht 177.8 cm; Wt 97.5 kg
[~2023-04-15 06:19] MED LIST changes: -BSS IRR 500ML/OMIDRIA 4ML IRR BAG (OR ONLY) As Ordered ONE; -CYCLOPENTOLATE 1% OPHTH SOLN 2ML BTL OD SCH; +CYCLOPENTOLATE 1% OPHTH SOLN 2ML BTL OS SCH; -LIDOCAINE 1% SDV 5ML VIAL As Ordered ONE; -MIDAZOLAM INJ 2MG/2ML VIAL As Ordered ONE; -MOXIFLOXACIN 0.6MG/0.4ML INTRAOCULAR SYRINGE IO ONE; -OFLOXACIN 0.3 % (OCUFLOX) OPTH SOL 5ML OD SCH; +OFLOXACIN 0.3 % (OCUFLOX) OPTH SOL 5ML OS SCH; -PHENYLEPHRINE 2.5% OPHTH SOL 2ML OD SCH; +PHENYLEPHRINE 2.5% OPHTH SOL 2ML OS SCH; -PROPARACAINE 0.5% OPHTH SOL 15ML OD ONE; +PROPARACAINE 0.5% OPHTH SOL 15ML OS ONE; -TOBRADEX OPHTH OINT 3.5 GM As Ordered ONE; -TROPICAMIDE 1% OPHTH SOLN 15ML OD SCH; +TROPICAMIDE 1% OPHTH SOLN 15ML OS SCH; -fentaNYL 100 MCG/2 ML INJECTION As Ordered ONE
[2023-04-15] MEDS ORDERED: LIDOCAINE 1% SDV 5ML VIAL As Ordered ONE (06:44)
[2023-04-15] MEDS ORDERED: BSS IRR 500ML/OMIDRIA 4ML IRR BAG (OR ONLY) As Ordered ONE (06:44)
[2023-04-15] MEDS ORDERED: CEFUROXIME 1MG/0.1ML INTRACAMERAL INJ As Ordered ONE (06:45)
[2023-04-15] MEDS ORDERED: MOXIFLOXACIN 0.6MG/0.4ML INTRAOCULAR SYRINGE IO ONE (06:50)
[2023-04-15] MEDS ORDERED: fentaNYL 100 MCG/2 ML INJECTION As Ordered ONE (08:14)
[2023-04-15] MEDS ORDERED: MIDAZOLAM INJ 2MG/2ML VIAL As Ordered ONE (08:20)
[2023-04-15 08:45] VITALS: BP 155/70; TEMP 97.3; O2SAT 96
== END 2023-04-15 09:01 | disposition home or self-care (01) ==
LOC: M SDC 06:19
PROVIDERS: ATTEND Ophthalmology
DX: E11.36 Type 2 diabetes mellitus with diabetic cataract (principal); H25.12 Age-related nuclear cataract, left eye; I25.10 Atherosclerotic heart disease of native coronary artery without angina pectoris; I11.0 Hypertensive heart disease with heart failure; I50.9 Heart failure, unspecified; I25.2 Old myocardial infarction; E78.00 Pure hypercholesterolemia, unspecified; M10.9 Gout, unspecified; Z79.899 Other long term (current) drug therapy; Z95.5 Presence of coronary angioplasty implant and graft; Z79.02 Long term (current) use of antithrombotics/antiplatelets; Z88.0 Allergy status to penicillin; Z88.2 Allergy status to sulfonamides
CPT/HCPCS: 66984; J1097; J2250; J3010; V2632

== ENCOUNTER → 2023-06-11 | Outpatient (REF) | payer MEDICARE ==
[~2023-06-11] MED LIST changes: -CYCLOPENTOLATE 1% OPHTH SOLN 2ML BTL OS SCH; -OFLOXACIN 0.3 % (OCUFLOX) OPTH SOL 5ML OS SCH; -PHENYLEPHRINE 2.5% OPHTH SOL 2ML OS SCH; -PROPARACAINE 0.5% OPHTH SOL 15ML OS ONE; -TROPICAMIDE 1% OPHTH SOLN 15ML OS SCH
[2023-06-11 18:17] LABS: BASO # 0.1 10^3/uL (0.0-0.2); BASO % 0.7 % (0.0-1.0); EOS # 0.1 10^3/uL (0.0-0.5); HEMATOCRIT 41.7 % (42.0-52.0); HEMOGLOBIN 14.3 g/dl (13.5-17.5); LYMPH # 2.4 10^3/uL (1.5-5.0); MEAN CORPUSCULAR HEMOGLOBIN 30.3 pg (27.0-33.0); MEAN CORPUSCULAR HGB CONC 34.3 g/dl (32.0-36.5); MEAN CORPUSCULAR VOLUME 88.3 fl (80.0-96.0); MONO # 0.6 10^3/uL (0.0-0.8); MONO % 7.9 % (2.0-8.0); NEUTROPHILS # 3.8 10^3/uL (1.5-8.5); NEUTROPHILS % 55.1 % (36.0-66.0); PLATELET COUNT, AUTOMATED 177 10^3/uL (150-450); RED BLOOD COUNT 4.72 10^6/uL (4.30-6.10); WHITE BLOOD COUNT 6.9 10^3/uL (4.0-10.0)
[2023-06-11 18:49] LABS: ALKALINE PHOSPHATASE 54 U/L (46-116); ALT/SGPT 78 U/L (7.0-40); AST/SGOT 56 U/L (<34); BILIRUBIN,TOTAL 0.4 MG/DL (0.3-1.2); BLOOD UREA NITROGEN 12 MG/DL (9-23); CALCIUM LEVEL 10.6 MG/DL (8.3-10.6); CARBON DIOXIDE LEVEL 28 MMOL/L (20-31); CHLORIDE LEVEL 103 MMOL/L (98-107); CREATININE FOR GFR 0.67 MG/DL (0.70-1.30); GLOMERULAR FILTRATION RATE > 60.0 (>35); GLUCOSE, FASTING 181 MG/DL (74-106); POTASSIUM SERUM 4.5 MMOL/L (3.5-5.1); SODIUM LEVEL 136 MMOL/L (136-145); TOTAL PROTEIN 6.8 G/DL (5.7-8.2)
[2023-06-11 18:52] LABS: THYROID STIMULATING HORMONE 1.498 uIU/ML (0.55-4.78)
[2023-06-11 18:54] LABS: FREE T4 0.99 NG/DL (0.89-1.76)
== END ==
LOC: M SFHCADAM 12:09
PROVIDERS: ATTEND Family Medicine
DX: R06.09 Other forms of dyspnea (principal)

== ENCOUNTER → 2023-06-11 | Outpatient (CLI) | payer MEDICARE | LOC: M ADAMS 13:22 | PROVIDERS: ATTEND Family Medicine | DX: R06.09 Other forms of dyspnea (principal) ==

== ENCOUNTER → 2023-07-08 | Outpatient (REF) | payer MEDICARE ==
[2023-07-08 13:18] LABS: ALKALINE PHOSPHATASE 54 U/L (46-116); ALT/SGPT 95 U/L (7.0-40); AST/SGOT 69 U/L (<34); BILIRUBIN,TOTAL 0.6 MG/DL (0.3-1.2); BLOOD UREA NITROGEN 11 MG/DL (9-23); CALCIUM LEVEL 10.5 MG/DL (8.3-10.6); CARBON DIOXIDE LEVEL 28 MMOL/L (20-31); CHLORIDE LEVEL 104 MMOL/L (98-107); CREATININE FOR GFR 0.67 MG/DL (0.70-1.30); GLOMERULAR FILTRATION RATE > 60.0 (>35); GLUCOSE, FASTING 215 MG/DL (74-106); POTASSIUM SERUM 4.5 MMOL/L (3.5-5.1); SODIUM LEVEL 135 MMOL/L (136-145); TOTAL PROTEIN 6.8 G/DL (5.7-8.2)
[2023-07-08 13:52] LABS: HEPATITIS B CORE ANTIBODY IGM NEGATIVE (NEGATIVE); HEPATITIS C VIRUS ABY INDEX 0.02 INDEX (<0.8)
== END ==
LOC: M SFHCADAM 09:48
PROVIDERS: ATTEND Family Medicine
DX: R93.2 Abnormal findings on diagnostic imaging of liver and biliary tract (principal); Z01.89 Encounter for other specified special examinations

== ENCOUNTER 2023-07-09 12:31 | Emergency (ER) | payer MEDICARE ==
[~2023-07-09] VITALS: Ht 177.8 cm; Wt 102.4 kg
[2023-07-09 13:22] LABS: BASO % 0.8 % (0.0-1.0); EOS # 0.1 10^3/uL (0.0-0.5); EOS % 1.5 % (0.0-3.0); HEMOGLOBIN 13.9 g/dl (13.5-17.5); LYMPH # 1.9 10^3/uL (1.5-5.0); LYMPH % 36.8 % (24.0-44.0); MEAN CORPUSCULAR HEMOGLOBIN 30.6 pg (27.0-33.0); MEAN CORPUSCULAR HGB CONC 35.6 g/dl (32.0-36.5); MEAN CORPUSCULAR VOLUME 85.9 fl (80.0-96.0); MONO # 0.5 10^3/uL (0.0-0.8); MONO % 8.9 % (2.0-8.0); NEUTROPHILS # 2.7 10^3/uL (1.5-8.5); NEUTROPHILS % 51.6 % (36.0-66.0); PLATELET COUNT, AUTOMATED 158 10^3/uL (150-450); RED BLOOD COUNT 4.54 10^6/uL (4.30-6.10); WHITE BLOOD COUNT 5.2 10^3/uL (4.0-10.0)
[2023-07-09 13:45] LABS: BLOOD UREA NITROGEN 14 MG/DL (9-23); CALCIUM LEVEL 10.6 MG/DL (8.3-10.6); CARBON DIOXIDE LEVEL 27 MMOL/L (20-31); CHLORIDE LEVEL 101 MMOL/L (98-107); CK-MB VALUE MASS < 1.0 NG/ML (<3.6); CREATININE FOR GFR 0.65 MG/DL (0.70-1.30); GLOMERULAR FILTRATION RATE > 60.0 (>35); GLUCOSE, FASTING 162 MG/DL (74-106); POTASSIUM SERUM 4.2 MMOL/L (3.5-5.1); SODIUM LEVEL 135 MMOL/L (136-145)
[2023-07-09 13:48] LABS: CPK CREATINE PHOSPHOKINASE 38 U/L (46-171); MB/CK RELATIVE INDEX 2.63 (< OR =4)
[2023-07-09 15:00] LABS: CK-MB VALUE MASS < 1.0 NG/ML (<3.6)
[2023-07-09 15:02] LABS: CPK CREATINE PHOSPHOKINASE 24 U/L (46-171); MB/CK RELATIVE INDEX 4.16 (< OR =4)
[2023-07-09 15:33] VITALS: BP 131/73; TEMP 97.3; O2SAT 97
== END 2023-07-09 15:41 | disposition home or self-care (01) ==
LOC: M ED 12:31
DX: R07.9 Chest pain, unspecified (principal); I11.0 Hypertensive heart disease with heart failure; I25.2 Old myocardial infarction; E11.9 Type 2 diabetes mellitus without complications; E78.5 Hyperlipidemia, unspecified; K21.9 Gastro-esophageal reflux disease without esophagitis; K44.9 Diaphragmatic hernia without obstruction or gangrene; Z95.5 Presence of coronary angioplasty implant and graft; Z79.899 Other long term (current) drug therapy; Z88.0 Allergy status to penicillin; Z88.2 Allergy status to sulfonamides

== ENCOUNTER → 2023-07-18 | Outpatient (REF) | payer MEDICARE ==
[2023-07-18 13:57] LABS: APPEARANCE, URINE CLEAR (CLEAR); BACTERIA, URINE AUTO NEGATIVE (NEGATIVE); BILIRUBIN, URINE AUTO NEGATIVE (NEGATIVE); BLOOD, URINE BLOOD NEGATIVE (NEGATIVE); COLOR, URINE YELLOW (YELLOW); GLUCOSE, URINE (UA) AUTO NEGATIVE (NEGATIVE); KETONE, URINE AUTO NEGATIVE (NEGATIVE); LEUKOCYTE ESTERASE, URINE AUTO NEGATIVE (NEGATIVE); NITRITE, URINE AUTO NEGATIVE (NEGATIVE); PROTEIN, URINE AUTO NEGATIVE (NEGATIVE); RBC, URINE AUTO 0 /HPF (0-3); SPECIFIC GRAVITY URINE AUTO 1.009 (1.002-1.035); SQUAMOUS EPITHELIAL CELL UR AU 0 /HPF (0-6); UROBILINOGEN, URINE AUTO 0.2 mg/dL (0.0-2.0); WBC, URINE AUTO 1 /HPF (0-3)
== END ==
LOC: M SMT 12:42
PROVIDERS: ATTEND Physician Assistant
DX: Z87.898 Personal history of other specified conditions (principal); Z79.899 Other long term (current) drug therapy; Z79.84 Long term (current) use of oral hypoglycemic drugs; Z88.1 Allergy status to other antibiotic agents; Z88.2 Allergy status to sulfonamides; Z88.0 Allergy status to penicillin; Z87.891 Personal history of nicotine dependence

== ENCOUNTER → 2023-07-21 | Outpatient (REF) | payer MEDICARE | LOC: M SFHCADAM 09:50 | PROVIDERS: ATTEND Physician Assistant | DX: Z12.5 Encounter for screening for malignant neoplasm of prostate (principal) ==

== ENCOUNTER → 2023-07-23 | Outpatient (CLI) | payer MEDICARE | LOC: M SOG 07:55 | PROVIDERS: ATTEND Physician Assistant | DX: M65.331 Trigger finger, right middle finger (principal) ==

== ENCOUNTER → 2023-08-05 | Outpatient (CLI) | payer MEDICARE ==
[~2023-08-05] MED LIST changes: +CETI10CA2 PO; +EQ 8650T PO; -EZET10TA21; +EZET10TA21 PO; +LOSA25TA13 PO; -NITR4TASL; +NITR4TASL PO; -TAMS1CAP17; +TAMS1CAP17 PO; +THERTAB52 PO
== END ==
LOC: M RAD 13:30
PROVIDERS: ATTEND Physician Assistant
DX: Z87.898 Personal history of other specified conditions (principal); R39.198 Other difficulties with micturition

== ENCOUNTER → 2023-08-08 | Outpatient (REF) | payer MEDICARE ==
[2023-08-08 18:36] LABS: BASO % 0.6 % (0.0-1.0); EOS # 0.1 10^3/uL (0.0-0.5); EOS % 1.8 % (0.0-3.0); HEMOGLOBIN 13.6 g/dl (13.5-17.5); LYMPH # 3.8 10^3/uL (1.5-5.0); MEAN CORPUSCULAR VOLUME 88.3 fl (80.0-96.0); MONO # 0.6 10^3/uL (0.0-0.8); MONO % 8.4 % (2.0-8.0); NEUTROPHILS # 2.5 10^3/uL (1.5-8.5); NEUTROPHILS % 34.9 % (36.0-66.0); PLATELET COUNT, AUTOMATED 205 10^3/uL (150-450); RED BLOOD COUNT 4.53 10^6/uL (4.30-6.10); WHITE BLOOD COUNT 7.1 10^3/uL (4.0-10.0)
[2023-08-08 19:09] LABS: BLOOD UREA NITROGEN 15 MG/DL (9-23); CALCIUM LEVEL 11.1 MG/DL (8.3-10.6); CARBON DIOXIDE LEVEL 27 MMOL/L (20-31); CHLORIDE LEVEL 104 MMOL/L (98-107); CREATININE FOR GFR 0.89 MG/DL (0.70-1.30); GLOMERULAR FILTRATION RATE > 60.0 (>35); GLUCOSE, FASTING 132 MG/DL (74-106); MAGNESIUM LEVEL 1.7 MG/DL (1.8-2.4); POTASSIUM SERUM 4.7 MMOL/L (3.5-5.1); SODIUM LEVEL 137 MMOL/L (136-145)
== END ==
LOC: M SFHCADAM 13:28
PROVIDERS: ATTEND Physician Assistant
DX: I95.1 Orthostatic hypotension (principal); I25.118 Atherosclerotic heart disease of native coronary artery with other forms of angina pectoris; R06.02 Shortness of breath; Z79.84 Long term (current) use of oral hypoglycemic drugs; Z79.899 Other long term (current) drug therapy; Z85.09 Personal history of malignant neoplasm of other digestive organs; Z88.0 Allergy status to penicillin; Z88.1 Allergy status to other antibiotic agents; Z88.2 Allergy status to sulfonamides; Z87.891 Personal history of nicotine dependence

== ENCOUNTER 2023-08-12 06:05 | Day surgery (SDC) | payer MEDICARE ==
[~2023-08-12] VITALS: Ht 177.8 cm; Wt 98.4 kg
[~2023-08-12 06:05] MED LIST changes: +LIDOCAINE W/EPINEPHRINE 1% 20ML VIAL XX ONE; +SODIUM BICARBONATE 8.4% INJ 50MEQ 50ML VIAL XX ONE
[2023-08-12] MEDS ORDERED: BACITRACIN OINTMENT 30GM TUBE As Ordered ONE (07:16)
[2023-08-12 08:05] VITALS: BP 163/71; TEMP 97.3; O2SAT 97
== END 2023-08-12 08:17 | disposition home or self-care (01) ==
LOC: M SDC 06:05
PROVIDERS: ATTEND Orthopaedic Surgery Hand Surgery
DX: M65.331 Trigger finger, right middle finger (principal); I25.110 Atherosclerotic heart disease of native coronary artery with unstable angina pectoris; I50.9 Heart failure, unspecified; I11.0 Hypertensive heart disease with heart failure; E11.9 Type 2 diabetes mellitus without complications; Z95.5 Presence of coronary angioplasty implant and graft; R94.31 Abnormal electrocardiogram [ECG] [EKG]; E78.5 Hyperlipidemia, unspecified; K74.60 Unspecified cirrhosis of liver; I25.2 Old myocardial infarction; G47.9 Sleep disorder, unspecified; Z85.21 Personal history of malignant neoplasm of larynx; Z87.891 Personal history of nicotine dependence; Z79.84 Long term (current) use of oral hypoglycemic drugs; Z88.0 Allergy status to penicillin; Z88.2 Allergy status to sulfonamides; Z79.899 Other long term (current) drug therapy

== ENCOUNTER → 2023-08-22 | Outpatient (CLI) | payer MEDICARE ==
[~2023-08-22] MED LIST changes: -LIDOCAINE W/EPINEPHRINE 1% 20ML VIAL XX ONE; -SODIUM BICARBONATE 8.4% INJ 50MEQ 50ML VIAL XX ONE
== END ==
LOC: M WHC 08:58
PROVIDERS: ATTEND Physician Assistant
DX: K74.60 Unspecified cirrhosis of liver (principal); R18.8 Other ascites; E11.8 Type 2 diabetes mellitus with unspecified complications; E83.52 Hypercalcemia

== ENCOUNTER → 2023-08-22 | Outpatient (CLI) | payer MEDICARE ==
[2023-08-22 12:16] LABS: INR 1.03; PROTHROMBIN TIME 13.2 SECONDS (12.5-14.5)
[2023-08-22 12:29] LABS: ALBUMIN 4.1 G/DL (3.2-5.2); ALKALINE PHOSPHATASE 55 U/L (46-116); ALT/SGPT 72 U/L (7.0-40); AST/SGOT 41 U/L (<34); BILIRUBIN,TOTAL 0.5 MG/DL (0.3-1.2); BLOOD UREA NITROGEN 13 MG/DL (9-23); CALCIUM LEVEL 11.3 MG/DL (8.3-10.6); CARBON DIOXIDE LEVEL 28 MMOL/L (20-31); CHLORIDE LEVEL 103 MMOL/L (98-107); CREATININE FOR GFR 0.73 MG/DL (0.70-1.30); GLOMERULAR FILTRATION RATE > 60.0 (>35); GLUCOSE, FASTING 139 MG/DL (74-106); POTASSIUM SERUM 4.8 MMOL/L (3.5-5.1); PTH INTACT 95.9 PG/ML (18.5-88.0); SODIUM LEVEL 137 MMOL/L (136-145); TOTAL PROTEIN 6.9 G/DL (5.7-8.2)
[2023-08-22 12:30] LABS: TOTAL 25(OH) VITAMIN D 19.3 NG/ML (20.0-100.0)
[2023-08-22 12:36] LABS: HEMOGLOBIN A1c 6.3 % (4.0-6.0)
== END ==
LOC: M PLALAB 09:03
PROVIDERS: ATTEND Physician Assistant
DX: E11.8 Type 2 diabetes mellitus with unspecified complications (principal); K74.60 Unspecified cirrhosis of liver; E83.52 Hypercalcemia

== ENCOUNTER → 2023-09-10 | Outpatient (REF) | payer MEDICARE ==
[~2023-09-10] MED LIST changes: +DOXY-440 PO; -DOXY-444 PO
== END ==
LOC: M SFHCADAM 10:31
PROVIDERS: ATTEND Family Medicine
DX: Z53.9 Procedure and treatment not carried out, unspecified reason (principal)

== ENCOUNTER → 2023-09-10 | Outpatient (CLI) | payer MEDICARE ==
[2023-09-10 12:35] LABS: IONIZED CALCIUM 5.6 MG/DL (4.5-5.3)
[2023-09-10 13:09] LABS: PTH INTACT 92.4 PG/ML (18.5-88.0)
== END ==
LOC: M LAB 11:21
PROVIDERS: ATTEND Family Medicine
DX: R79.89 Other specified abnormal findings of blood chemistry (principal)

== ENCOUNTER → 2023-09-13 | Outpatient (CLI) | payer MEDICARE ==
[~2023-09-13] MED LIST changes: +MAGN100T PO; +ONDA-282; -ONDA4TAB6; +ROSU5TAB40 PO
== END ==
LOC: M EKG 12:53
PROVIDERS: ATTEND Internal Medicine Cardiovascular Disease
DX: R55 Syncope and collapse (principal); I44.0 Atrioventricular block, first degree; I45.10 Unspecified right bundle-branch block

== ENCOUNTER → 2023-09-15 | Outpatient (CLI) | payer MEDICARE ==
[~2023-09-15] MED LIST changes: +ISOVUE-370 76% 100ML VIAL ONE; -MAGN100T PO; -ONDA-282; +ONDA4TAB6; -ROSU5TAB40 PO
== END ==
LOC: M PLAIMG 10:03
PROVIDERS: ATTEND Family Medicine
DX: N28.89 Other specified disorders of kidney and ureter (principal)
CPT/HCPCS: 74160; Q9967

== ENCOUNTER → 2023-09-29 | Outpatient (REF) | payer MEDICARE ==
[~2023-09-29] MED LIST changes: -ISOVUE-370 76% 100ML VIAL ONE; +MAGN100T PO; +ONDA-282; -ONDA4TAB6; +ROSU5TAB40 PO
== END ==
LOC: M SFHCADAM 10:47
PROVIDERS: ATTEND Family Medicine
DX: E21.0 Primary hyperparathyroidism (principal)

== ENCOUNTER → 2023-10-01 | Outpatient (REF) | payer MEDICARE ==
[2023-10-01 15:18] LABS: CALCIUM, 24 HOUR URINE 670.9 MG/24HR (42-353); CALCIUM, URINE 49.7 MG/DL
== END ==
LOC: M SFHCADAM 12:34
PROVIDERS: ATTEND Family Medicine
DX: E21.0 Primary hyperparathyroidism (principal)

== ENCOUNTER → 2023-10-14 | Outpatient (CLI) | payer MEDICARE | LOC: M WHC 09:29 | PROVIDERS: ATTEND Family Medicine | DX: E21.0 Primary hyperparathyroidism (principal) ==

== ENCOUNTER → 2024-01-05 | Outpatient (CLI) | payer MEDICARE | LOC: M RAD 09:01 | PROVIDERS: ATTEND Otolaryngology | DX: E21.3 Hyperparathyroidism, unspecified (principal) | CPT/HCPCS: 78071; A9500 ==

== ENCOUNTER → 2024-01-12 | Day surgery (SDC) | payer MEDICARE ==
[~2024-01-12] VITALS: Ht 180.3 cm; Wt 97.8 kg
[~2024-01-12] MED LIST changes: +NS 1,000 ML IV ONE
[2024-01-12 08:11] VITALS: TEMP 97.1
[2024-01-12 08:30] VITALS: BP 119/64; O2SAT 94
== END | disposition home or self-care (01) ==
LOC: M OPP 06:21
PROVIDERS: ATTEND Internal Medicine Gastroenterology
DX: Z86.010 Personal history of colon polyps (principal); D12.6 Benign neoplasm of colon, unspecified; K64.0 First degree hemorrhoids; K57.30 Diverticulosis of large intestine without perforation or abscess without bleeding; K63.5 Polyp of colon; K44.9 Diaphragmatic hernia without obstruction or gangrene; R12 Heartburn; I20.9 Angina pectoris, unspecified; I50.9 Heart failure, unspecified; E11.9 Type 2 diabetes mellitus without complications; Z95.5 Presence of coronary angioplasty implant and graft; Z86.73 Personal history of transient ischemic attack (TIA), and cerebral infarction without residual deficits; Z87.891 Personal history of nicotine dependence; Z79.02 Long term (current) use of antithrombotics/antiplatelets; Z79.84 Long term (current) use of oral hypoglycemic drugs; Z79.891 Long term (current) use of opiate analgesic; Z79.899 Other long term (current) drug therapy; Z88.0 Allergy status to penicillin; Z88.2 Allergy status to sulfonamides

== ENCOUNTER → 2024-02-09 | Outpatient (REF) | payer MEDICARE ==
[~2024-02-09] MED LIST changes: +GABA-1172 PO; -GABA-282 PO; -NS 1,000 ML IV ONE
[2024-02-09 13:22] LABS: APPEARANCE, URINE CLEAR (CLEAR); BACTERIA, URINE AUTO NEGATIVE (NEGATIVE); BILIRUBIN, URINE AUTO NEGATIVE (NEGATIVE); BLOOD, URINE BLOOD NEGATIVE (NEGATIVE); COLOR, URINE YELLOW (YELLOW); GLUCOSE, URINE (UA) AUTO NEGATIVE (NEGATIVE); KETONE, URINE AUTO NEGATIVE (NEGATIVE); LEUKOCYTE ESTERASE, URINE AUTO NEGATIVE (NEGATIVE); MUCUS, URINE SMALL (NEGATIVE); NITRITE, URINE AUTO NEGATIVE (NEGATIVE); PROTEIN, URINE AUTO NEGATIVE (NEGATIVE); RBC, URINE AUTO 0 /HPF (0-3); SPECIFIC GRAVITY URINE AUTO 1.014 (1.002-1.035); SQUAMOUS EPITHELIAL CELL UR AU 0 /HPF (0-6); UROBILINOGEN, URINE AUTO 0.2 mg/dL (0.0-2.0); WBC, URINE AUTO 1 /HPF (0-3)
== END ==
LOC: M SMT 12:27
PROVIDERS: ATTEND Physician Assistant
DX: R35.0 Frequency of micturition (principal)

== ENCOUNTER → 2024-02-23 | Outpatient (REF) | payer MEDICARE ==
[2024-02-23 14:31] LABS: ALKALINE PHOSPHATASE 51 U/L (40-129); ALT/SGPT 36 U/L (7.0-40); AST/SGOT 25 U/L (<34); BILIRUBIN,TOTAL 0.5 MG/DL (0.3-1.2); BLOOD UREA NITROGEN 9 MG/DL (9-23); CALCIUM LEVEL 11.3 MG/DL (8.3-10.6); CARBON DIOXIDE LEVEL 28 MMOL/L (20-31); CHLORIDE LEVEL 105 MMOL/L (98-107); CREATININE FOR GFR 0.82 MG/DL (0.70-1.30); GLOMERULAR FILTRATION RATE > 60.0 (>35); GLUCOSE, FASTING 124 MG/DL (74-106); POTASSIUM SERUM 4.4 MMOL/L (3.5-5.1); SODIUM LEVEL 138 MMOL/L (136-145); TOTAL PROTEIN 7.1 G/DL (5.7-8.2)
[2024-02-23 14:47] LABS: HEMOGLOBIN A1c 6.9 % (4.0-6.0)
== END ==
LOC: M SFHCADAM 10:15
PROVIDERS: ATTEND Family Medicine
DX: E11.8 Type 2 diabetes mellitus with unspecified complications (principal); I10 Essential (primary) hypertension

== ENCOUNTER → 2024-03-03 | Outpatient (CLI) | payer MEDICARE ==
[~2024-03-03] MED LIST changes: -ROSU5TAB40 PO; +ROSU5TAB49 PO
== END ==
LOC: M ADAMS 11:38
PROVIDERS: ATTEND Family Medicine
DX: J98.11 Atelectasis (principal); R05.1 Acute cough

== ENCOUNTER → 2024-03-08 | Outpatient (CLI) | payer MEDICARE | LOC: M RAD 13:45 | PROVIDERS: ATTEND Physician Assistant | DX: N50.82 Scrotal pain (principal); N43.3 Hydrocele, unspecified; I86.1 Scrotal varices ==

== ENCOUNTER → 2024-03-17 | Outpatient (REF) | payer MEDICARE ==
[2024-03-17 14:36] LABS: BLOOD UREA NITROGEN 11 MG/DL (9-23); GLOMERULAR FILTRATION RATE > 60.0 (>35)
== END ==
LOC: M LABDRWAD 13:17
PROVIDERS: ATTEND Otolaryngology
DX: E21.3 Hyperparathyroidism, unspecified (principal); E13.10 Other specified diabetes mellitus with ketoacidosis without coma; R49.0 Dysphonia

== ENCOUNTER → 2024-03-22 | Outpatient (CLI) | payer MEDICARE ==
[~2024-03-22] MED LIST changes: +ISOVUE-370 76% 100ML VIAL ONE
== END ==
LOC: M PLAIMG 13:04
PROVIDERS: ATTEND Otolaryngology
DX: E21.3 Hyperparathyroidism, unspecified (principal)
CPT/HCPCS: 70492; Q9967

== ENCOUNTER → 2024-03-29 | Outpatient (CLI) | payer MEDICARE ==
[~2024-03-29] MED LIST changes: -ISOVUE-370 76% 100ML VIAL ONE
[2024-03-29 14:03] LABS: IONIZED CALCIUM 5.7 MG/DL (4.5-5.3)
[2024-03-29 14:29] LABS: PTH INTACT 101.8 PG/ML (18.5-88.0)
== END ==
LOC: M LAB 13:38
PROVIDERS: ATTEND Otolaryngology
DX: E21.3 Hyperparathyroidism, unspecified (principal)

== ENCOUNTER → 2024-04-26 | Outpatient (REF) | payer MEDICARE ==
[2024-04-26 18:24] LABS: BASO # 0.1 10^3/uL (0.0-0.2); BASO % 0.6 % (0.0-1.0); EOS # 0.1 10^3/uL (0.0-0.5); EOS % 1.5 % (0.0-3.0); LYMPH # 2.4 10^3/uL (1.5-5.0); LYMPH % 27.8 % (24.0-44.0); MEAN CORPUSCULAR HEMOGLOBIN 29.9 pg (27.0-33.0); MEAN CORPUSCULAR HGB CONC 33.3 g/dl (32.0-36.5); MEAN CORPUSCULAR VOLUME 89.7 fl (80.0-96.0); MONO # 0.7 10^3/uL (0.0-0.8); MONO % 7.9 % (2.0-8.0); NEUTROPHILS # 5.4 10^3/uL (1.5-8.5); NEUTROPHILS % 61.9 % (36.0-66.0); PLATELET COUNT, AUTOMATED 174 10^3/uL (150-450); RED BLOOD COUNT 4.68 10^6/uL (4.30-6.10); WHITE BLOOD COUNT 8.8 10^3/uL (4.0-10.0)
[2024-04-26 18:36] LABS: ALBUMIN 3.9 G/DL (3.2-5.2); ALKALINE PHOSPHATASE 56 U/L (40-129); ALT/SGPT 32 U/L (7.0-40); AST/SGOT 22 U/L (<34); BILIRUBIN,TOTAL 0.4 MG/DL (0.3-1.2); BLOOD UREA NITROGEN 12 MG/DL (9-23); CALCIUM LEVEL 11.8 MG/DL (8.3-10.6); CARBON DIOXIDE LEVEL 29 MMOL/L (20-31); CHLORIDE LEVEL 100 MMOL/L (98-107); CHOLESTEROL LEVEL 158 MG/DL (<200); CHOLESTEROL RISK RATIO 4.21 (<5); CREATININE FOR GFR 0.67 MG/DL (0.70-1.30); GLOMERULAR FILTRATION RATE > 60.0 (>35); GLUCOSE, FASTING 160 MG/DL (74-106); HDL CHOLESTEROL 37.5 MG/DL (>40); LDL CHOLESTEROL 56.3 MG/DL (<100); NON-HDL-C 120.5 MG/DL; POTASSIUM SERUM 4.4 MMOL/L (3.5-5.1); SODIUM LEVEL 137 MMOL/L (136-145); TOTAL PROTEIN 7.3 G/DL (5.7-8.2); TRIGLYCERIDES LEVEL 321 MG/DL (<150)
== END ==
LOC: M LABDRWAD 17:39
PROVIDERS: ATTEND Internal Medicine Cardiovascular Disease
DX: R07.2 Precordial pain (principal); I50.32 Chronic diastolic (congestive) heart failure; I25.119 Atherosclerotic heart disease of native coronary artery with unspecified angina pectoris; I35.1 Nonrheumatic aortic (valve) insufficiency; I11.0 Hypertensive heart disease with heart failure

== ENCOUNTER → 2024-05-25 | Outpatient (CLI) | payer MEDICARE | LOC: M ADAMS 10:51 | PROVIDERS: ATTEND Family Medicine | DX: R06.09 Other forms of dyspnea (principal) ==

== ENCOUNTER 2024-06-07 16:08 | Emergency (ER) | payer MEDICARE ==
[~2024-06-07] VITALS: Ht 177.8 cm; Wt 99.5 kg
[2024-06-07] MEDS ORDERED: ASPIRIN 81MG CHEW TABLET PO ONE (16:40)
[2024-06-07 16:57] LABS: BASO % 0.6 % (0.0-1.0); EOS # 0.2 10^3/uL (0.0-0.5); EOS % 2.4 % (0.0-3.0); HEMATOCRIT 39.8 % (42.0-52.0); HEMOGLOBIN 13.9 g/dl (13.5-17.5); LYMPH # 2.3 10^3/uL (1.5-5.0); MEAN CORPUSCULAR HEMOGLOBIN 30.3 pg (27.0-33.0); MEAN CORPUSCULAR HGB CONC 34.9 g/dl (32.0-36.5); MEAN CORPUSCULAR VOLUME 86.7 fl (80.0-96.0); MONO # 0.5 10^3/uL (0.0-0.8); MONO % 7.2 % (2.0-8.0); NEUTROPHILS # 3.3 10^3/uL (1.5-8.5); PLATELET COUNT, AUTOMATED 173 10^3/uL (150-450); RED BLOOD COUNT 4.59 10^6/uL (4.30-6.10); WHITE BLOOD COUNT 6.3 10^3/uL (4.0-10.0)
[2024-06-07 17:01] VITALS: BP 184/82
[2024-06-07] MEDS: ASPIRIN 81MG CHEW TABLET PO ONE (17:01)
[2024-06-07] MEDS: NITROGLYCERIN 0.4MG SUBL TABLET SL PRN (17:01)
[2024-06-07 17:30] LABS: BLOOD UREA NITROGEN 12 MG/DL (9-23); CALCIUM LEVEL 10.7 MG/DL (8.3-10.6); CARBON DIOXIDE LEVEL 25 MMOL/L (20-31); CHLORIDE LEVEL 103 MMOL/L (98-107); CK-MB VALUE MASS < 1.0 NG/ML (<3.6); CPK CREATINE PHOSPHOKINASE 50 U/L (46-171); CREATININE FOR GFR 0.62 MG/DL (0.70-1.30); GLOMERULAR FILTRATION RATE > 60.0 (>35); GLUCOSE, FASTING 198 MG/DL (74-106); POTASSIUM SERUM 4.2 MMOL/L (3.5-5.1); SODIUM LEVEL 137 MMOL/L (136-145)
[2024-06-07 17:45] LABS: INR 0.91; PARTIAL THROMBOPLASTIN TIME 29.5 SECONDS (24.8-34.2); PROTHROMBIN TIME 12.6 SECONDS (12.5-14.5)
[2024-06-07 17:48] LABS: LIPASE 35 U/L (12-53)
[2024-06-07 17:50] LABS: ALKALINE PHOSPHATASE 50 U/L (40-129); ALT/SGPT 41 U/L (7.0-40); AST/SGOT 30 U/L (<34); BILIRUBIN,DIRECT 0.1 MG/DL (<0.4); BILIRUBIN,TOTAL 0.4 MG/DL (0.3-1.2)
[2024-06-07] MEDS ORDERED: ISOVUE-370 76% 100ML VIAL As Ordered ONE (18:05)
[2024-06-07 18:22] LABS: THYROID STIMULATING HORMONE 1.644 uIU/ML (0.55-4.78)
[2024-06-07 18:31] LABS: MB/CK RELATIVE INDEX 2.32 (< OR =4)
[2024-06-07] MEDS ORDERED: HOME MED LIST COMPLETE! XX SCH (19:15)
[2024-06-07] MEDS: HEPARIN SOD (PORCINE) 5000UNITS/ML 1ML VIAL/SYRINGE IV ONE (20:37)
[2024-06-07] MEDS: HEPARIN DRIP 25,000 UNITS in IV 1 EA IV SCH (20:39)
[2024-06-07 21:45] VITALS: BP 149/80; TEMP 97.3; O2SAT 97
== END 2024-06-07 21:55 | disposition short-term general hospital (02) ==
LOC: M ED 16:08
DX: I20.0 Unstable angina (principal); I50.9 Heart failure, unspecified; I25.2 Old myocardial infarction; E11.9 Type 2 diabetes mellitus without complications; I10 Essential (primary) hypertension; E78.5 Hyperlipidemia, unspecified; C32.9 Malignant neoplasm of larynx, unspecified; Z95.5 Presence of coronary angioplasty implant and graft; Z79.899 Other long term (current) drug therapy; Z88.0 Allergy status to penicillin; Z88.2 Allergy status to sulfonamides
CPT/HCPCS: 71045; 71275; 80048; 80076; 82550; 82553; 83690; 83880; 84439; 84443; 84484; 85025; 85610; 85730; 87486; 87581; 87633; 87798; 93005; 93041; 94760; 96374; 99285; Q9967

== ENCOUNTER → 2024-06-24 | Outpatient (REF) | payer MEDICARE | LOC: M LABDRWAD 12:55 | PROVIDERS: ATTEND Physician Assistant | DX: Z12.5 Encounter for screening for malignant neoplasm of prostate (principal) | CPT/HCPCS: 36415; G0103 ==

== ENCOUNTER 2024-06-26 13:55 | Emergency (ER) | payer MEDICARE ==
[~2024-06-26] VITALS: Ht 177.8 cm; Wt 101.8 kg
[2024-06-26 17:45] VITALS: BP 133/70; TEMP 97.9; O2SAT 97
[2024-06-26] MEDS: BOOSTRIX VACCINE (TETANUS/DIPHTH/ACEL. PERTUSSIS) 0.5ML SYR IM ONE (17:45)
== END 2024-06-26 17:51 | disposition home or self-care (01) ==
LOC: M ED 13:55
DX: S61.412A Laceration without foreign body of left hand, initial encounter (principal); W01.10XA Fall on same level from slipping, tripping and stumbling with subsequent striking against unspecified object, initial encounter; Y92.008 Other place in unspecified non-institutional (private) residence as the place of occurrence of the external cause; Y93.9 Activity, unspecified; Y99.9 Unspecified external cause status; I25.2 Old myocardial infarction; I10 Essential (primary) hypertension; Z85.21 Personal history of malignant neoplasm of larynx; Z79.899 Other long term (current) drug therapy; Z88.0 Allergy status to penicillin; Z88.2 Allergy status to sulfonamides

== ENCOUNTER → 2024-07-19 | Outpatient (REF) | payer MEDICARE ==
[2024-07-19 17:53] LABS: APPEARANCE, URINE HAZY (CLEAR); BACTERIA, URINE AUTO NEGATIVE (NEGATIVE); BILIRUBIN, URINE AUTO NEGATIVE (NEGATIVE); BLOOD, URINE BLOOD NEGATIVE (NEGATIVE); CALCIUM OXALATE CRYSTALS MODERATE; COLOR, URINE YELLOW (YELLOW); GLUCOSE, URINE (UA) AUTO 1+ mg/dL (NEGATIVE); KETONE, URINE AUTO NEGATIVE (NEGATIVE); LEUKOCYTE ESTERASE, URINE AUTO NEGATIVE (NEGATIVE); MUCUS, URINE SMALL (NEGATIVE); NITRITE, URINE AUTO NEGATIVE (NEGATIVE); PROTEIN, URINE AUTO NEGATIVE (NEGATIVE); RBC, URINE AUTO 0 /HPF (0-3); SPECIFIC GRAVITY URINE AUTO 1.018 (1.002-1.035); SQUAMOUS EPITHELIAL CELL UR AU 0 /HPF (0-6); UROBILINOGEN, URINE AUTO 0.2 mg/dL (0.0-2.0); WBC, URINE AUTO 2 /HPF (0-3)
== END ==
LOC: M SMT 17:10
PROVIDERS: ATTEND Physician Assistant
DX: Z87.898 Personal history of other specified conditions (principal)

== ENCOUNTER → 2024-07-30 | Outpatient (CLI) | payer MEDICARE | LOC: M ADAMS 08:00 | PROVIDERS: ATTEND Physician Assistant | DX: Z12.5 Encounter for screening for malignant neoplasm of prostate (principal) | CPT/HCPCS: 36415; G0103 ==

== ENCOUNTER → 2024-08-23 | Outpatient (CLI) | payer MEDICARE | LOC: M ADAMS 11:29 | PROVIDERS: ATTEND Family Medicine | DX: R07.9 Chest pain, unspecified (principal) ==

== ENCOUNTER → 2024-08-23 | Outpatient (CLI) | payer MEDICARE ==
[2024-08-23 12:51] LABS: CREATININE FOR GFR 0.78 MG/DL (0.70-1.30); GLOMERULAR FILTRATION RATE 87.9 (>35)
== END ==
LOC: M ADAMS 11:31
PROVIDERS: ATTEND Otolaryngology
DX: E21.3 Hyperparathyroidism, unspecified (principal); R13.10 Dysphagia, unspecified; R49.0 Dysphonia

== ENCOUNTER → 2024-08-23 | Outpatient (REF) | payer MEDICARE ==
[2024-08-23 12:48] LABS: BASO % 0.5 % (0.0-1.0); EOS # 0.1 10^3/uL (0.0-0.5); EOS % 1.9 % (0.0-3.0); HEMATOCRIT 40.6 % (42.0-52.0); HEMOGLOBIN 13.9 g/dl (13.5-17.5); LYMPH # 2.2 10^3/uL (1.5-5.0); LYMPH % 35.4 % (24.0-44.0); MEAN CORPUSCULAR HEMOGLOBIN 30.1 pg (27.0-33.0); MEAN CORPUSCULAR HGB CONC 34.2 g/dl (32.0-36.5); MEAN CORPUSCULAR VOLUME 87.9 fl (80.0-96.0); MONO # 0.6 10^3/uL (0.0-0.8); MONO % 9.3 % (2.0-8.0); NEUTROPHILS # 3.3 10^3/uL (1.5-8.5); NEUTROPHILS % 52.6 % (36.0-66.0); PLATELET COUNT, AUTOMATED 182 10^3/uL (150-450); RED BLOOD COUNT 4.62 10^6/uL (4.30-6.10); WHITE BLOOD COUNT 6.3 10^3/uL (4.0-10.0)
[2024-08-23 12:53] LABS: ALBUMIN 4.1 G/DL (3.2-5.2); ALKALINE PHOSPHATASE 51 U/L (40-129); ALT/SGPT 43 U/L (7.0-40); AST/SGOT 32 U/L (<34); BILIRUBIN,TOTAL 0.6 MG/DL (0.3-1.2); BLOOD UREA NITROGEN 13 MG/DL (9-23); CALCIUM LEVEL 11.2 MG/DL (8.3-10.6); CARBON DIOXIDE LEVEL 27 MMOL/L (20-31); CHLORIDE LEVEL 103 MMOL/L (98-107); CK-MB VALUE MASS < 1.0 NG/ML (<3.6); CREATININE FOR GFR 0.79 MG/DL (0.70-1.30); GLOMERULAR FILTRATION RATE 87.6 (>35); GLUCOSE, FASTING 131 MG/DL (74-106); POTASSIUM SERUM 4.7 MMOL/L (3.5-5.1); SODIUM LEVEL 139 MMOL/L (136-145); TOTAL PROTEIN 6.9 G/DL (5.7-8.2)
[2024-08-23 12:58] LABS: CPK CREATINE PHOSPHOKINASE 51 U/L (46-171); MB/CK RELATIVE INDEX 1.96 (< OR =4)
[2024-08-23 13:38] LABS: HEMOGLOBIN A1c 6.7 % (4.0-6.0)
== END ==
LOC: M SFHCADAM 11:20
PROVIDERS: ATTEND Family Medicine
DX: R07.9 Chest pain, unspecified (principal); E11.8 Type 2 diabetes mellitus with unspecified complications; E21.3 Hyperparathyroidism, unspecified; R13.10 Dysphagia, unspecified; R49.0 Dysphonia; R06.02 Shortness of breath

== ENCOUNTER → 2024-09-01 | Outpatient (CLI) | payer MEDICARE ==
[~2024-09-01] MED LIST changes: +ISOVUE-370 76% 100ML VIAL As Ordered ONE
== END ==
LOC: M RAD 07:37
PROVIDERS: ATTEND Otolaryngology
DX: E21.3 Hyperparathyroidism, unspecified (principal)
CPT/HCPCS: 70491; Q9967

== ENCOUNTER → 2024-11-01 | Outpatient (CLI) | payer MEDICARE ==
[~2024-11-01] MED LIST changes: -ISOVUE-370 76% 100ML VIAL As Ordered ONE; +PRAV10TA PO; -PRAV10TA4 PO
[2024-11-01 16:19] LABS: BASO # 0.0 10^3/uL (0.0-0.2); BASO % 0.6 % (0.0-1.0); EOS # 0.1 10^3/uL (0.0-0.5); EOS % 1.4 % (0.0-3.0); LYMPH # 2.3 10^3/uL (1.5-5.0); LYMPH % 36.3 % (24.0-44.0); MONO # 0.5 10^3/uL (0.0-0.8); MONO % 8.7 % (2.0-8.0); NEUTROPHILS # 3.3 10^3/uL (1.5-8.5); NEUTROPHILS % 52.7 % (36.0-66.0); PLATELET COUNT, AUTOMATED 184 10^3/uL (150-450)
[2024-11-01 16:22] LABS: C REACTIVE PROTEIN QUANTITATIV < 0.50 MG/DL (<1.0)
[2024-11-01 16:23] LABS: ALT/SGPT 32 U/L (7.0-40); AST/SGOT 30 U/L (<34); CALCIUM LEVEL 11.7 MG/DL (8.3-10.6); CARBON DIOXIDE LEVEL 27 MMOL/L (20-31); CHLORIDE LEVEL 103 MMOL/L (98-107); CREATININE FOR GFR 0.75 MG/DL (0.70-1.30); GLOMERULAR FILTRATION RATE 89.0 (>35); POTASSIUM SERUM 4.7 MMOL/L (3.5-5.1); SODIUM LEVEL 140 MMOL/L (136-145)
[2024-11-01 16:24] LABS: TOTAL 25(OH) VITAMIN D 29.5 NG/ML (20.0-100.0)
[2024-11-01 16:25] LABS: ERYTHROCYTE SEDIMENTATION RATE 11 mm/hr (0-20)
[2024-11-03 17:20] LABS: PROTEIN, TOTAL SO 7.0 g/dL (6.1-8.1)
[2024-11-05 05:56] LABS: ALBUMIN SO 4.4 g/dL (3.8-4.8); ALPHA 1 GLOBULINS SO 0.3 g/dL (0.2-0.3); ALPHA 2 GLOBULINS SO 0.9 g/dL (0.5-0.9); BETA 2 GLOBULIN SO 0.3 g/dL (0.2-0.5); BETA GLOBULIN SO 0.4 g/dL (0.4-0.6); GAMMA GLOBULINS SO 0.7 g/dL (0.8-1.7)
== END ==
LOC: M PLALAB 12:34
PROVIDERS: ATTEND Physician Assistant Medical
DX: R51.9 Headache, unspecified (principal); R29.6 Repeated falls; Z79.899 Other long term (current) drug therapy

== ENCOUNTER → 2024-11-02 | Outpatient (CLI) | payer MEDICARE | LOC: M RAD 16:11 | PROVIDERS: ATTEND Physician Assistant Medical | DX: R51.9 Headache, unspecified (principal); R29.6 Repeated falls ==

== ENCOUNTER → 2024-11-16 | Outpatient (CLI) | payer MEDICARE ==
[2024-11-16 15:08] LABS: VITAMIN B12 LEVEL 490.0 PG/ML (211-911)
== END ==
LOC: M ADAMS 09:28
PROVIDERS: ATTEND Psychiatry & Neurology Neurology
DX: R13.10 Dysphagia, unspecified (principal); R47.1 Dysarthria and anarthria

== ENCOUNTER → 2025-01-03 | Outpatient (CLI) | payer MEDICARE | LOC: M ADAMS 12:06 | PROVIDERS: ATTEND Family Medicine | DX: M43.6 Torticollis (principal); M25.551 Pain in right hip; M25.552 Pain in left hip ==

== ENCOUNTER → 2025-02-01 | Outpatient (REF) | payer MEDICARE ==
[~2025-02-01] MED LIST changes: -EZET10TA21 PO; +EZET10TA57 PO
== END ==
LOC: M LABDRWAD 17:34
PROVIDERS: ATTEND Ophthalmology
DX: M31.6 Other giant cell arteritis (principal)

== ENCOUNTER → 2025-02-02 | Outpatient (CLI) | payer MEDICARE ==
[2025-02-02 15:17] LABS: BASO # 0.0 10^3/uL (0.0-0.2); BASO % 0.7 % (0.0-1.0); EOS # 0.2 10^3/uL (0.0-0.5); EOS % 2.7 % (0.0-3.0); LYMPH # 2.2 10^3/uL (1.5-5.0); LYMPH % 38.6 % (24.0-44.0); MONO # 0.5 10^3/uL (0.0-0.8); MONO % 8.3 % (2.0-8.0); NEUTROPHILS # 2.8 10^3/uL (1.5-8.5); NEUTROPHILS % 49.5 % (36.0-66.0); PLATELET COUNT, AUTOMATED 186 10^3/uL (150-450)
[2025-02-02 15:21] LABS: ALT/SGPT 32.0 U/L (7.0-40); AST/SGOT 27.0 U/L (<34); CALCIUM LEVEL 10.4 MG/DL (8.3-10.6); CARBON DIOXIDE LEVEL 28.0 MMOL/L (20-31); CHLORIDE LEVEL 104.0 MMOL/L (98-107); CHOLESTEROL LEVEL 134.0 MG/DL (<200); CHOLESTEROL RISK RATIO 3.57 (<5); CREATININE FOR GFR 0.88 MG/DL (0.70-1.30); GLOMERULAR FILTRATION RATE 84.8 (>35); LDL CHOLESTEROL 67.5 MG/DL (<100); MAGNESIUM LEVEL 1.8 MG/DL (1.8-2.4); NON-HDL-C 96.5 MG/DL; POTASSIUM SERUM 4.6 MMOL/L (3.5-5.1); SODIUM LEVEL 142.0 MMOL/L (136-145); TRIGLYCERIDES LEVEL 145.0 MG/DL (<150)
== END ==
LOC: M LABDRWAD 08:08
PROVIDERS: ATTEND Nurse Practitioner Family
DX: I50.32 Chronic diastolic (congestive) heart failure (principal)

== ENCOUNTER → 2025-03-14 | Outpatient (REF) | payer MEDICARE ==
[~2025-03-14] MED LIST changes: -EQ 8650T PO; +[UNRECOGNIZED DRUG - CODE] PO
[2025-03-14 14:06] LABS: APPEARANCE, URINE HAZY (CLEAR); BACTERIA, URINE AUTO NEGATIVE (NEGATIVE); BILIRUBIN, URINE AUTO NEGATIVE (NEGATIVE); BLOOD, URINE BLOOD NEGATIVE (NEGATIVE); GLUCOSE, URINE (UA) AUTO 3+ mg/dL (NEGATIVE); KETONE, URINE AUTO NEGATIVE (NEGATIVE); LEUKOCYTE ESTERASE, URINE AUTO NEGATIVE (NEGATIVE); NITRITE, URINE AUTO NEGATIVE (NEGATIVE); PROTEIN, URINE AUTO NEGATIVE (NEGATIVE); RBC, URINE AUTO 0 /HPF (0-3); SPECIFIC GRAVITY URINE AUTO 1.028 (1.002-1.035); SQUAMOUS EPITHELIAL CELL UR AU 0 /HPF (0-6); UROBILINOGEN, URINE AUTO 0.2 mg/dL (0.0-2.0); WBC, URINE AUTO 1 /HPF (0-3)
== END ==
LOC: M SMT 12:49
PROVIDERS: ATTEND Physician Assistant
DX: R39.9 Unspecified symptoms and signs involving the genitourinary system (principal)

== ENCOUNTER → 2025-04-05 | Outpatient (REF) | payer MEDICARE ==
[2025-04-05 15:35] LABS: ALT/SGPT 34 U/L (7.0-40); AST/SGOT 26 U/L (<34); CALCIUM LEVEL 11.5 MG/DL (8.3-10.6); CARBON DIOXIDE LEVEL 29 MMOL/L (20-31); CHLORIDE LEVEL 104 MMOL/L (98-107); CREATININE FOR GFR 0.71 MG/DL (0.70-1.30); GLOMERULAR FILTRATION RATE > 90.0 (>35); POTASSIUM SERUM 5.1 MMOL/L (3.5-5.1); SODIUM LEVEL 142 MMOL/L (136-145)
[2025-04-05 15:37] LABS: ESTIMATED AVERAGE GLUCOSE 151.0 MG/DL (60-110)
== END ==
LOC: M SFHCADAM 10:37
PROVIDERS: ATTEND Family Medicine
DX: E11.8 Type 2 diabetes mellitus with unspecified complications (principal)

== ENCOUNTER → 2025-04-05 | Outpatient (CLI) | payer MEDICARE | LOC: M ADAMS 10:39 | PROVIDERS: ATTEND Family Medicine | DX: S22.32XA Fracture of one rib, left side, initial encounter for closed fracture (principal); Z91.81 History of falling; X58.XXXA Exposure to other specified factors, initial encounter; Y92.9 Unspecified place or not applicable; Y93.9 Activity, unspecified; Y99.9 Unspecified external cause status ==

== ENCOUNTER → 2025-04-13 | Outpatient (CLI) | payer MEDICARE | LOC: M LAB 12:12 | PROVIDERS: ATTEND Otolaryngology | DX: E21.3 Hyperparathyroidism, unspecified (principal) ==